=== PATIENT | female | born 1940 | race Caucasian/White ===

== ENCOUNTER → 2018-08-17 | Outpatient (CLI) | payer MEDICARE, OTHER, SELFPAY ==
--- NOTE | 2018-08-17 10:30 | CT_ITS ---
STUDY: CT LEFT SHOULDER REASON FOR EXAM: Osteoarthritis, evaluate for shoulder replacement. TECHNIQUE: The patient was scanned in a multi detector CT scanner. High resolution transaxial imaging was performed without the administration of intravenous contrast material. Sagittal and coronal images were reconstructed. Individualized dose optimization techniques were used for this CT. COMPARISON: None. FINDINGS: There is glenohumeral arthrosis with marginal osteophytes of the humeral head and joint space narrowing (coronal reconstructions 37-39). There are intra-articular bodies in the subscapularis recess (sagittal reconstructions 32-35) and in the bicipital tendon sheath (sagittal reconstructions 48-50). Normal glenoid rim, neck and visualized scapula. Normal humeral head, neck and tuberosities. Normal coracoid process. Normal visualized lateral clavicle. There is no substantial acromioclavicular arthrosis. There is a Type II morphology (curved), with a neutral orientation. Normal visualized muscles and soft tissue structures. There is a cardiac pacemaker. CT/Extremity Upper without Contra IMPRESSION: Glenohumeral arthrosis with intra-articular bodies. Electronically Signed: Hakeem Medrano MD at 14:01 EDT Tel , Service support ,
== END | disposition home or self-care (01) ==
LOC: RAD 10:18
PROVIDERS: Family Provider Nurse Practitioner Primary Care; PCP Nurse Practitioner Primary Care; Referring Provider Specialist; Visit Provider Specialist
DX: M19.012 Primary osteoarthritis, left shoulder (principal)
CPT/HCPCS: 73200

== ENCOUNTER 2020-06-06 07:52 | Day surgery (SDC) | payer MEDICARE, OTHER, SELFPAY ==
[2020-05-18 10:49] VITALS: BMI 31.1
[2020-06-06] VITALS (7 sets, daily range): BP systolic 83–126; BP diastolic 46–68; PULSE 66–93; RESP 16–18; TEMP 36.3–37.2; O2SAT 96–100; BMI 32.0
--- NOTE | 2020-06-06 06:00 | HP_ITS ---
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: No Is patient in pain?: No Allergies celecoxib [From Celebrex] Allergy (Intermediate, Verified 05/18/20 10:51) stomach pain atenolol [From Tenormin] Allergy (Verified 07/31/14 14:52) Unknown iodine Allergy (Verified 07/31/14 14:52) Unknown morphine Allergy (Verified 07/31/14 14:52) Unknown Medications Multivitamins,Therapeutic [Multivitamin] 1 tab PO DAILY 07/31/14 [History Confirmed 05/18/20] Pramipexole Di-HCl [Mirapex] 0.125 mg PO QHS 07/31/14 [History Confirmed 05/18/20] apixaban 5 mg tablet 5 mg PO BID 05/18/20 [History Confirmed 05/18/20] esomeprazole magnesium 40 mg capsule,delayed release 40 mg PO DAILY 05/18/20 [History Confirmed 05/18/20] metoprolol succinate 50 mg tablet,extended release 24 hr 50 mg PO QAM tab 05/18/20 [History Confirmed 05/18/20] metoprolol tartrate 75 mg tablet 75 mg PO QPM tab 05/18/20 [History Confirmed 05/18/20] polyethylene glycol 3350 17 gram/dose oral powder 17 g PO DAILY 05/18/20 [History Confirmed 05/18/20] [facility] Medical History Arthritis (Acute) Atrial fibrillation (Acute) Fatigue (Acute) GERD (gastroesophageal reflux disease) (Acute) History of back problems (Acute) History of heart disease (Acute) Surgical History (Updated 05/18/20 @ 10:46 by Elizabeth Venegas) History of hysterectomy (Acute) History of pacemaker (Acute) History of shoulder replacement (Acute) Family History (Updated 05/18/20 @ 10:48 by Elizabeth Venegas) Father Heart disease Cancer skin cancer Brother CVA (cerebral vascular accident) Daughter Thyroid disorder Social History (Updated 05/21/20 @ 08:[address] Fifi Rader MD) Smoking Status: Never smoker HPI HPI HPI: RUY SIMPSON, is a 80 F who presents to the office today for HPI HPI Surgical H&P: Yes HPI: RUY SIMPSON, is a 80 F who presents to the office today for abdominal bloating. Patient states this began about 3 weeks ago she felt like her upper abdomen was bloated this has improved some she did see her PCP the next week day and got Nexium as well as Pepcid for her reflux. Patient does admit to reflux about 3 times a week prior to 3 weeks ago- currently on the medication patient denies any GERD symptoms which for her were burning up the esophagus. Patient does have bowel once daily however none now she has take MiraLAX daily for the last week. Prior to 3 weeks ago patient states she had normal bowel movements daily with no laxative and denies any blood. Patient states her last colonoscopy was in 2006 or 2007 she did have couple polyps that time was done in [place] by Dr. Mcrae. Patient states her last EGD was by Dr. Mitchell about 3 to 4 years ago in [place] which was also normal. Patient denies any abdominal pain just the bloating sensation. ROS General General: Yes fatigue; no weight change, appetite, colon cancer, breast cancer or weakness HEENT HEENT: No difficulty swallowing, eye injury, eye surgery, swollen glands or hoarseness Endo Endocrine: No thyroid disease, diabetes mellitus, thyroid cancer, Hair loss, heat intolerance or cold intolerance Skin Skin: No rash or changing moles Breast Breast: No left breast lump, right breast lump, nipple discharge, breast pain, abnormal mammogram, abnormal US or breast enlargement Musc Musculoskeletal: Yes back problems and arthritis; no rheumatoid arthritis, gout or joint pain Cardio Cardiovascular: Yes pacemaker, heart disease and atrial fibrillation; no high blood pressure, heart attack, heart stent, palpitations, shortness of breat with exertion or chest pain Psych Psychiatric: No depression, anxiety or hearing voices Resp Respiratory: No shortness of breath, No sleep apnea, Yes cough, No COPD, No asthma, No emphysema, No wheezing Gastro Gastrointestinal: No abdominal pain, No nausea or vomiting, No diarrhea, No constipation, No blood in stool, Yes acid reflux, No hemorrhoids, No ulcers, No gallbladder problem, No black,tarry stools Robert Hematologic: Yes blood thinners, No blood disorders, No bleeding, No anemia, Yes blood clots Neuro Neurologic: No system reviewed and no additional complaints, except as docu, No as per HPI, No abnormal walking, No abnormal hearing, No abnormal movements, No abnormal speech, No behavioral changes, No burning sensations, No confusion, No seizure-like activity, No unsteadiness, No dizziness, No localized weakness, No frequent falls, No headache(s), No lack of coordination, No loss of vision, No memory loss, No numbness, No other visual disturbances, No radiating pain, No restless legs, No sensory deficit, No fainting, No tingling, No tremor(s), No weakness, No other Exam Const General: cooperative, comfortable, no acute distress, well developed Chest Breast Palpation: No nipple discharge Resp Effort & Inspection: normal respiratory effort Cardio Rate: regular rate GI Inspection: non-distended Palpation: soft, no guarding, nontender Neuro General: oriented x3 Extrem General: no clubbing, cyanosis or edema Psych Affect: normal affect Assessment & Plan Problems 1. Abdominal bloating R14.0 2. Hx of colonic polyps Z86.010 Plan Patient will stop eliquis 2 days prior to scopes. I have discussed the above with the patient. I have offered the patient EGD & colonoscopy for evaluation. I have explained the risks/benefits of the procedure and described the procedure. I have discussed the risks with the patient, including but not limited to: infection, bleeding, perforation of the GI tract requiring emergency surgery, inability to complete the procedure, injury to any internal organs, complications of anesthesia, etc. - the patient understands and agrees to proceed. I have answered all the patient's questions to the patient's satisfaction and the patient has no further questions. The patient has been given instructions for the colon cleansing preparation. 1 day of clears, MiraLAX Dulcolax split prep. Patient requested June 06 Fifi Rader M.D. Pager: [phone] [facility] [address] [place] [address], Outpatient [facility]ilion, [address] [place] [address] Office: [phone] Orders Orders: Colonoscopy 05/18/20 EGD 05/18/20 Plan Detail Follow Up We will schedule EGD and colonoscopy for June 06. Coding Level of Care Code Off vis,new,level 3 Diagnoses Abdominal bloating R14.0 Hx of colonic polyps Z86.010 COVID (Procedure Consent) Procedure Criteria Procedure Criteria: Yes Elective The surgeon/proceduralist and patient have discussed in detail the risk of exposure to and/or potential harm posed by the COVID-19 virus with having a surgery/procedure at this time versus the risk of? delaying the surgery/procedure. It is not possible to know either the risk of delaying the surgery or procedure or chance of getting an infection with perfect accuracy, but a joint decision was made between the patient and the surgeon/proceduralist ?to proceed at this time with the scheduled surgery/procedure as indicated on the consent form. I have examined the patient the following changes are noted: Patient states her symptoms of burning at the esophagus resolved with Nexium as she is no longer taking the Pepcid. Patient also states that her bloating is improved.
[2020-06-06] MEDS: Lactated Ringers 1,000 ML 100 ML IV (08:27)
--- NOTE | 2020-06-06 09:00 | GASB_PTH ---
PATIENT: RUY SIMPSON LOC: EN U#:[id number] AGE/SX: 80/F ROOM: RE06/06/[address]: Dr. Fifi Rader MD : 1940 BED: DIS: 06/06/2020 SPEC #: [id number] RECD: 06/06/20 11:15 STATUS: PETRA ANNEMARIE #: [id number] ANN MARIE: 06/06/20 09:[address]: Fifi Rader DEPT: SURGICAL PATHOLOGY RECD BY: Noelle Hammer ENTERED: 06/06/20 13:36 SP TYPE: Gastric Bx OTHR DR: Dr. Cr Flaherty MD Tissues: A - Gastric mucous membrane B - Gastric mucous membrane Procedures: Special Stain Group II Surgery Specimen Level IV Alcian Blue/PAS (control) HEADER OPERATION: Colonoscopy, EGD ([facility] [place]) PRE-OP DIAGNOSIS: Abdominal bloating; history colon polyps TISSUE SUBMITTED: A - Antrum biopsy for histo and H. pylori, B - GE junction biopsy MICROSCOPIC DIAGNOSIS A. Antrum biopsy: Mild gastritis. See microscopic description and comment. B. GE junction, biopsy: A fragment of gastric mucosa with mild to moderate chronic inflammation. Intestinal metaplasia (goblet cell metaplasia) is not identified. See comment. SJ:rg 06/07/2020 COMMENT A. The results of immunohistochemistry for Helicobacter pylori will be reported separately ([id number]). B. Alcian blue/PAS stain with matched control is used in the evaluation of the specimen. MICROSCOPIC DESCRIPTION Slides are reviewed. A. The specimen shows fragments of gastric mucosa with chronic inflammatory cell infiltrates in the lamina propria consisting of lymphocytes and plasma cells, consistent with mild chronic gastritis. GROSS DESCRIPTION A - Received in fixative is one container labeled with the patient's name and designated antrum biopsy. The specimen consists of one irregular fragment of light connolly soft tissue that measures 0.3 x 0.2 x 0.1 cm. The specimen is totally submitted in one cassette. B - Received in fixative is one container labeled with the patient's name and designated GE junction. The specimen consists of one irregular fragment of light connolly soft tissue that measures 0.3 x 0.2 x 0.1 cm. The specimen is totally submitted in one cassette. / AM:amena 06/06/20 TC:3 CPT: 36152 x2, 07939
--- NOTE | 2020-06-06 09:00 | IMM_PTH ---
PATIENT: RUY SIMPSON LOC: EN U#:[id number] AGE/SX: 80/F ROOM: RE06/06/[address]: Dr. Fifi Rader MD : 1940 BED: DIS: 06/06/2020 SPEC #: [id number] RECD: 06/06/20 14:57 STATUS: PETRA REQ #: [id number] ANN MARIE: 06/06/20 09:[address]: Fifi Rader DEPT: IMMUNOHISTOCHEMISTRY RECD BY: Tiny Armstrong ENTERED: 06/06/20 14:57 SP TYPE: IMMUNO OTHR DR: Dr. Cr Flaherty MD Tissues: A - Stomach, NOS Procedures: H Pylori (initial) PHYSICIAN & INSTITUTION [place] [id number] SPECIMEN INFORMATION: Tissue Source: A - Antrum biopsy Clinical Info: Abdominal bloating; history colonic polyps Specimen Number: [id number] CPT code: 22448 METHODOLOGY: Deparaffinized sections of prefer/formalin-fixed tissue or PAP/DQ stained slides are incubated with monoclonal/polyclonal antibodies/oligonucleotide probes. Localization is made via biotin free immunoperoxidase method. Appropriate controls are performed and reacted as expected. Results on target cell population are indicated in the following table: RESULTS: ANTIBODY / CLONE RESULT Block A H Pylori (polyclonal) negative These tests were developed and their performance characteristics determined by [facility]. They may not have been cleared or approved by the U.S. Food and Drug Administration. The FDA has determined that such clearance or approval is not necessary. INTERPRETATION: A. Antrum, biopsy: Negative for Helicobacter pylori organisms. SJ:amena 06/07/2020
--- NOTE | 2020-06-06 09:48 | OP.CCLET_ITS ---
06/06/2020 Cr Flaherty MD [address] [id number] Re : Upper GI endoscopy procedure for Fabienne Chu Dear Dr. Flaherty This procedure was performed on Saturday, June 06, 2020. My impressions and recommendations are as follows: Impressions : - Z-line variable, 38 cm from the incisors. Biopsied. - Erythematous mucosa in the antrum. Biopsied. - Normal examined duodenum. - A few gastric polyps. Recommendations : - Await pathology results. - Discharge patient to home. - Resume previous diet. - Continue present medications. My findings are described in the full procedure note, which is enclosed. If I can be of further assistance, please feel free to contact me at Doctor phone number(s): , Work: . Sincerely, MD Fifi Valdes MD 06/06/2020 9:47:40 AM This report has been signed electronically.
--- NOTE | 2020-06-06 09:48 | OP.EGD_ITS ---
Patient Name: Fabienne Chu Procedure Date: 06/06/2020 8:58 AM Date of : 1940 Age: 80 Procedure: Upper GI endoscopy Indications: Abdominal bloating Providers: Fifi Rader MD Referring MD: Cr Flaherty MD Medicines: Monitored Anesthesia Care Patient Profile: This is a 80 year old female. Complications: No immediate complications. Procedure: Pre-Anesthesia Assessment: - Prior to the procedure, a History and Physical was performed, and patient medications and allergies were reviewed. The patient's tolerance of previous anesthesia was also reviewed. The risks and benefits of the procedure and the sedation options and risks were discussed with the patient. All questions were answered, and informed consent was obtained. Prior Anticoagulants: The patient has taken Eliquis (apixaban), last dose was 2 days prior to procedure. ASA Grade Assessment: Per anesthesia. After reviewing the risks and benefits, the patient was deemed in satisfactory condition to undergo the procedure. After obtaining informed consent, the endoscope was passed under direct vision. Throughout the procedure, the patient's blood pressure, pulse, and oxygen saturations were monitored continuously. The Endoscope was introduced through the mouth, and advanced to the second part of duodenum. The upper GI endoscopy was accomplished without difficulty. The patient tolerated the procedure well. Scope In: 9:08:04 AM Scope Out: 9:14:31 AM Total Procedure Duration Time 0 hours 6 minutes 27 seconds Findings: The Z-line was variable and was found 38 cm from the incisors. Biopsies were taken with a cold forceps for histology. Mildly erythematous mucosa without bleeding was found in the gastric antrum. Biopsies were taken with a cold forceps for histology. Biopsies were taken with a cold forceps for Helicobacter pylori cultures. The examined duodenum was normal. The cardia and gastric fundus were normal on retroflexion. A few less than 5 mm sessile polyps with no bleeding and no stigmata of recent bleeding were found in the gastric fundus. Impression: - Z-line variable, 38 cm from the incisors. Biopsied. - Erythematous mucosa in the antrum. Biopsied. - Normal examined duodenum. - A few gastric polyps. Recommendation: - Await pathology results. - Discharge patient to home. - Resume previous diet. - Continue present medications. Procedure Code(s): --- Professional --- 87459, Esophagogastroduodenoscopy, flexible, transoral; with biopsy, single or multiple Diagnosis Code(s): --- Professional --- K22.8, Other specified diseases of esophagus K31.89, Other diseases of stomach and duodenum K31.7, Polyp of stomach and duodenum R14.0, Abdominal distension (gaseous) CPT copyright 2017 [employer]. All rights reserved. The codes documented in this report are preliminary and upon rac specialist review may be revised to meet current compliance requirements. MD Fifi Valdes MD 06/06/2020 9:47:40 AM This report has been signed electronically. Number of Addenda: 0 Note Initiated On: 06/06/2020 8:58 AM
--- NOTE | 2020-06-06 09:51 | OP.COLON_ITS ---
Patient Name: Fabienne Chu Procedure Date: 06/06/2020 9:15 AM Date of : 1940 Age: 80 Procedure: Colonoscopy Indications: Surveillance: Personal history of colonic polyps (unknown histology) on last colonoscopy more than 5 years ago Providers: Fifi Rader MD Referring MD: Cr Flaherty MD Medicines: Monitored Anesthesia Care Patient Profile: This is a 80 year old female. Last Colonoscopy: more than 10 years ago. Complications: No immediate complications. Procedure: Pre-Anesthesia Assessment: - Prior to the procedure, a History and Physical was performed, and patient medications and allergies were reviewed. The patient's tolerance of previous anesthesia was also reviewed. The risks and benefits of the procedure and the sedation options and risks were discussed with the patient. All questions were answered, and informed consent was obtained. Prior Anticoagulants: The patient has taken Eliquis (apixaban), last dose was 2 days prior to procedure. ASA Grade Assessment: Per anesthesia. After reviewing the risks and benefits, the patient was deemed in satisfactory condition to undergo the procedure. After I obtained informed consent, the scope was passed under direct vision. Throughout the procedure, the patient's blood pressure, pulse, and oxygen saturations were monitored continuously. The colonoscope was introduced through the anus and advanced to the cecum, identified by the appendiceal orifice, ileocecal valve and palpation. The colonoscopy was performed without difficulty. The patient tolerated the procedure well. The quality of the bowel preparation was good. Scope In: 9:16:30 AM Scope Withdrawal Time 0 hours 12 minutes 10 seconds Scope Out: 9:37:23 AM Total Procedure Duration Time 0 hours 20 minutes 53 seconds Findings: Hemorrhoids were found on perianal exam. Many small and large-mouthed diverticula were found in the sigmoid colon, descending colon and transverse colon. The entire examined colon appeared normal on direct and retroflexion views. Impression: - Hemorrhoids found on perianal exam. - Diverticulosis in the sigmoid colon, in the descending colon and in the transverse colon. - The entire examined colon is normal on direct and retroflexion views. - No specimens collected. Recommendation: - Discharge patient to home. - High fiber diet. - Continue present medications. - Repeat colonoscopy in 10 years depending on overall health at that time. Procedure Code(s): --- Professional --- G0105, PT, Colorectal cancer screening; colonoscopy on individual at high risk Diagnosis Code(s): --- Professional --- Z86.010, Personal history of colonic polyps K64.9, Unspecified hemorrhoids K57.30, Diverticulosis of large intestine without perforation or abscess without bleeding CPT copyright 2017 [employer]. All rights reserved. The codes documented in this report are preliminary and upon top collar baster review may be revised to meet current compliance requirements. MD Fifi Valdes MD 06/06/2020 9:51:14 AM This report has been signed electronically. Number of Addenda: 0 Note Initiated On: 06/06/2020 9:15 AM
--- NOTE | 2020-06-06 09:51 | OP.CCLET_ITS ---
06/06/2020 Cr Flaherty MD [address] [id number] Re : Colonoscopy procedure for Fabienne Chu Dear Dr. Flaherty This procedure was performed on Saturday, June 06, 2020. My impressions and recommendations are as follows: Impressions : - Hemorrhoids found on perianal exam. - Diverticulosis in the sigmoid colon, in the descending colon and in the transverse colon. - The entire examined colon is normal on direct and retroflexion views. - No specimens collected. Recommendations : - Discharge patient to home. - High fiber diet. - Continue present medications. - Repeat colonoscopy in 10 years depending on overall health at that time. My findings are described in the full procedure note, which is enclosed. If I can be of further assistance, please feel free to contact me at Doctor phone number(s): , Work: . Sincerely, MD Fifi Valdes MD 06/06/2020 9:51:14 AM This report has been signed electronically.
== END 2020-06-06 10:45 | disposition home or self-care (01) ==
LOC: EN 07:53 → AC 07:54
PROVIDERS: PCP Family Medicine; Referring Provider Family Medicine; Visit Provider Surgery
PROC: 0DJD8ZZ Inspection of Lower Intestinal Tract, Via Natural or Artificial Opening Endoscopic (ICD-10-PCS; CPT 45378; principal; 2020-06-06 08:55)
DX: K29.70 Gastritis, unspecified, without bleeding (principal); K31.7 Polyp of stomach and duodenum; K64.9 Unspecified hemorrhoids; K57.30 Diverticulosis of large intestine without perforation or abscess without bleeding; M19.90 Unspecified osteoarthritis, unspecified site; I48.91 Unspecified atrial fibrillation; K21.9 Gastro-esophageal reflux disease without esophagitis; K58.9 Irritable bowel syndrome, unspecified; G25.81 Restless legs syndrome; E78.00 Pure hypercholesterolemia, unspecified; Z78.0 Asymptomatic menopausal state; Z87.19 Personal history of other diseases of the digestive system; Z86.010 Personal history of colon polyps; Z86.718 Personal history of other venous thrombosis and embolism; Z79.01 Long term (current) use of anticoagulants; Z79.899 Other long term (current) drug therapy
CPT/HCPCS: 43239; G0105; 87426; 88305; 88313; 88342; C9803; J7120

== ENCOUNTER → 2022-07-10 | Outpatient (CLI) | payer MEDICARE, OTHER, SELFPAY ==
--- NOTE | 2022-07-10 12:51 | CT_ITS ---
EXAM: CT RIGHT UPPER EXTREMITY WITHOUT INTRAVENOUS CONTRAST, SHOULDER CLINICAL INDICATION: SHOULDER PAIN TECHNIQUE: Helically acquired images were obtained of the right shoulder without intravenous contrast. 2-D reformats were performed by the technologist. CTDIvol = ( 22.58 ) mGy, DLP = ( 628.92 ) mGycm This CT exam was performed using one or more of the following dose reduction techniques: automated exposure control, adjustment of the mA and/or kV according to patient size, and/or use of iterative reconstruction technique. This report was created using [employer] technology. COMPARISON: None. FINDINGS: BONES/JOINTS: Degenerative changes of the spine. Degenerative changes of the acromioclavicular joint. No acute or healing fracture or malalignment. No unusual lytic or sclerotic lesions of bone. Type II acromion with curved undersurface. No subacromial enthesophyte. SOFT TISSUES: Intramuscular lipoma along the peripheral aspect of the lateral deltoid muscle. No soft tissue swelling or gas. No radiopaque foreign body. LUNG APICES: Right middle lobe pleural parenchymal scarring. Lungs are otherwise clear. Lungs are clear. MEDIASTINUM: Few small scattered calcified granulomas. Calcified right hilar lymph nodes are compatible with granulomatous disease. OTHER FINDINGS: No hemorrhage or hematoma. CT/Extremity Upper without Contra IMPRESSION: 1. No acute or healing fracture or malalignment. 2. Moderate degenerative changes of the acromioclavicular joint and glenohumeral joint. Electronically Signed: Howie Willis MD at 4:04 EDT ,
== END | disposition home or self-care (01) ==
LOC: CT 12:48
PROVIDERS: PCP Student in an Organized Health Care Education/Training Program; Referring Provider Specialist; Visit Provider Specialist
DX: M19.011 Primary osteoarthritis, right shoulder (principal)
CPT/HCPCS: 73200

== ENCOUNTER 2022-10-24 10:58 | Outpatient (CLI) | payer MEDICARE, OTHER, SELFPAY ==
[2022-10-25 16:09] LABS: Carbohydrate Ag 19-9 2261 22 U/mL (0-35)
== END 2022-10-24 23:59 | disposition home or self-care (01) ==
LOC: LAB 11:02
PROVIDERS: PCP Student in an Organized Health Care Education/Training Program; Referring Provider Internal Medicine Gastroenterology; Visit Provider Internal Medicine Gastroenterology
DX: Q45.3 Other congenital malformations of pancreas and pancreatic duct (principal); K86.89 Other specified diseases of pancreas; D73.89 Other diseases of spleen; D72.829 Elevated white blood cell count, unspecified; D18.03 Hemangioma of intra-abdominal structures
CPT/HCPCS: 36415; 86301

== ENCOUNTER → 2022-11-11 | Outpatient (CLI) | payer MEDICARE, OTHER, SELFPAY ==
[2022-11-11] VITALS (8 sets, daily range): BP systolic 140–183; BP diastolic 71–90; PULSE 68–75; RESP 16–18; O2SAT 97–99; BMI 31.2
--- NOTE | 2022-11-11 13:24 | CT_ITS ---
EXAM: CT ABDOMEN AND PELVIS WITHOUT AND WITH INTRAVENOUS CONTRAST CLINICAL INDICATION: Pancreatic protocol TECHNIQUE: Helically acquired images were obtained of the abdomen and pelvis without and with intravenous contrast. This CT exam was performed using one or more of the following dose reduction techniques: automated exposure control, adjustment of the mA and/or kV according to patient size, and/or use of iterative reconstruction technique. CONTRAST: Oral Readi-CAT COMPARISON: No relevant prior studies available. FINDINGS: LOWER THORAX: Unremarkable. Lung bases are clear. No cardiomegaly. No significant pericardial effusion. ABDOMEN: LIVER: Unremarkable. Homogeneous. No focal mass. GALLBLADDER AND BILE DUCTS: Unremarkable. No calcified gallstones. No gallbladder distention or wall edema. No intra- or extrahepatic biliary ductal dilation. PANCREAS: Unremarkable. No focal cystic or solid mass. SPLEEN: There are several low-density masses in the spleen may represent hemangiomas or possibly metastatic disease. ADRENALS: Unremarkable. No nodules. KIDNEYS AND URETERS: Delayed images show normal excretion of contrast from both kidneys. Normal renal size and position. No hydronephrosis. STOMACH AND BOWEL: There is sigmoid diverticulosis with no evidence of diverticulitis. No stomach or bowel distention. PELVIS: APPENDIX: No evidence of acute appendicitis. BLADDER: Unremarkable. REPRODUCTIVE: The patient status post hysterectomy. ABDOMEN and PELVIS: INTRAPERITONEAL SPACE: Unremarkable. No ascites or other fluid collection. No free air. BONES/JOINTS: Unremarkable. No suspicious lytic or blastic abnormality. SOFT TISSUES: Unremarkable. No discrete abdominal or pelvic wall hernia. VASCULATURE: Unremarkable. Abdominal aorta is non-dilated. LYMPH NODES: Unremarkable. No enlarged lymph nodes. CT/CT Abd/Pelvis W/WO Contrast IMPRESSION: Multiple low-density masses in the spleen possibly representing metastatic disease or possibly lymphoma. If indicated further evaluation with MRI may be beneficial. No other acute abnormalities are identified. Electronically Signed: Kenny Cano MD at 22:07 EDT ,
[2022-11-11 14:16] LABS: CREATININE FINGERSTICK 1.2 mg/dL (0.55-1.02)
--- NOTE | 2022-11-11 16:00 | NURSING ---
ALYSSA Yeh discussed with patient talking with her PCP regarding her elevated BP. Pt reports recently starting on BP medication 1 week ago. Pt is agreeable to call PCP to inform them of elevated BPs throughout her time in Radiology waiting for her CT scan.
== END | disposition home or self-care (01) ==
LOC: CT 13:23
PROVIDERS: PCP Student in an Organized Health Care Education/Training Program; Referring Provider Internal Medicine Gastroenterology; Visit Provider Internal Medicine Gastroenterology
DX: Q45.3 Other congenital malformations of pancreas and pancreatic duct (principal)
CPT/HCPCS: 74178; Q9967; A4216

== ENCOUNTER → 2023-03-06 | Outpatient (CLI) | payer MEDICARE, OTHER, SELFPAY ==
[2023-03-07 12:08] LABS: Carbohydrate Ag 19-9 2261 21 U/mL (0-35)
== END | disposition home or self-care (01) ==
LOC: LAB 11:04
PROVIDERS: PCP Student in an Organized Health Care Education/Training Program; Referring Provider Internal Medicine Gastroenterology; Visit Provider Internal Medicine Gastroenterology
DX: Q45.3 Other congenital malformations of pancreas and pancreatic duct (principal)
CPT/HCPCS: 36415; 86301

== ENCOUNTER → 2023-05-08 | Outpatient (CLI) | payer MEDICARE, OTHER, SELFPAY ==
--- NOTE | 2023-05-08 08:25 | MRI_ITS ---
STUDY: MRI LEFT ANKLE WITHOUT CONTRAST REASON FOR EXAM: Female, 83 years old. Contusion of left lower leg. TECHNIQUE: Standardized fat and water weighted pulse sequences were obtained in all 3 orthogonal planes. COMPARISON: None. FINDINGS: There is minimal posterior tibialis tenosynovitis. Intact posterior tibialis tendon. Normal flexor digitorum longus tendon. Normal flexor hallucis longus tendon. Normal peroneus longus and brevis tendons. Normal tibialis anterior tendon. Normal extensor hallucis longus tendon. Normal extensor digitorum longus tendons. There is a complete full-thickness tear/rupture of the Achilles tendon, located between 5 to 7 cm above its distal insertion with a 2 cm fluid-filled gap (sagittal STIR series 6 images 11-13). Normal plantar fascia. Normal plantar calcaneal tubercles. Normal intrinsic muscles of the rearfoot. Normal distal tibiofibular syndesmotic ligamentous complex. Normal lateral ligamentous complex. Normal subtalar ligaments and sinus tarsi. Normal deltoid ligamentous complex. Normal plantar calcaneonavicular (spring) ligament. Normal tibiotalar articulation. Normal talar dome. There is a small posterior subtalar joint effusion. Normal talonavicular articulation. Normal calcaneocuboid articulation. Normal navicular-cuneiform articulations. There is mild subcutaneous soft tissue edema around the left ankle. MRI/Lower Ext Joint Only (Routine) IMPRESSION: Complete full-thickness tear/rupture of the Achilles tendon, located between 5 to 7 cm above its distal insertion with a 2 cm fluid-filled gap. Minimal posterior tibialis tenosynovitis. Small posterior subtalar joint effusion. Mild subcutaneous soft tissue edema around the left ankle. Electronically Signed: Jomar Lazo MD at 13:46 EST ,
--- OUTSIDE RECORDS SUMMARY | 2023-05-08 08:41 | XMS RPT_ITS | CCD ---
Author Name Unknown Address [address] [place] [address] Organization [employer] Care Team Providers Care Pipeline Dispatcher Name Role Phone MONA ARIAS Attending Unavailable HUGOMONA SAMSON Primary Care Unavailable HUGOMONA SAMSON Admitting Unavailable HUGOMONA SAMSON Attending Unavailable HUGO, MONA Cee Primary Care Unavailable HUGO, MONA Cee Admitting Unavailable IGNACIO MILAN-ROSARIO, AARON Primary Care Physician Narda PT, Michelle Unavailable Unavailable GUERA MILAN-STAPLE FIBER WASHER, TOMASZ Perez Primary Care Physician ROMAR DO, DR BISHOP [facility] GUERA MILAN-STAPLE FIBER WASHER, TOMASZ Perez Primary Care Pratik LYNNE APRN-STAPLE FIBER WASHER, TOMASZ Perez Admitting Pratik LAWRENCE MD, DR OTIS ELY Consulting Haris CHAPPELL MD, OPAL Perez Referring Unavailable TA SMITH, OPAL Perez Attending Unavailable MICHELE SMITH, DR FLAQUITA Garcia Attending Unavailab le ROMAR DO, DR BISHOP Primary Care Unavailable ROMAR DO, DR BISHOP Attending Unavailable ROMAR DO, DR BISHOP Primary Care Unavailable KENNEN BACK PANEL PADDER-STAPLE FIBER WASHER, TOMASZ Perez Primary Care Unavai lable ROMAR DO, DR BISHOP Attending Unavailable DEYSI SAAVEDRA PA-C Attending Unavailable JANENEN BACK PANEL PADDER-STAPLE FIBER WASHER, TOMASZ Perez Primary Care DELBERT Wharton DPM Attending Unavailable ROMAR DO, DR BISHOP Primary Care Unavailable ROMAR DO, DR BISHOP Attending Unavailable ROMAR DO, DR BISHOP Primary Care Unavailable ESAU TAYLOR PA-C Attending Unavailable ESESAU ALMEIDA PA-C Referring Unavailable ROMAR DO, DR BISHOP Primary Care Unavailable ROMAR DO, DR BISHOP Attending Unavailable ROMAR DO, DR BISHOP Primary Care Unavailable EDWARDO BACK PANEL PADDER-STAPLE FIBER WASHER, MICHELLE Estrada Consulting Unavaila ble ROMAR DO, DR BISHOP Primary Care Unavailable MICHELE SMITH, DR FLAQUITA Garcia Referring Unavailab tanya BAUTISTA MD, DR FLAQUITA Garcia Attending Unavailab tanya BAUTISTA MD, DR FLAQUITA Garcia Admitting [facility] Primary Care Provider Nica SMITH, Vilma Primary Care Provider [phone] DEO HERMAN Attending Unavailable LISHNGLORIAI, VILMA Primary Care Unavailable SIMA SHARPE Attending Unavailable BLAKE BULLOCK Attending Unavailable LISHNEVSKI, VILMA Attending Unavailable LISHNEVSKI, VILMA Primary Care Unavailable LISHNGLORIAI, VILMA Attending Unavailable LISHNEVSKI, VILMA Referring Unavailable LISHNEVSKI, VILMA Primary Care Unavailable DELBERT SARAVIA Attending Unavailable DELBERT SARAVIA Referring Unavailable LISHNESTRELLASKI, VILMA Primary Care Unavailable Allergies Allergy Classification Reported Allergen(s) Allergy Type Date of Onset Reaction(s) Facility (11 sources) celecoxib; Translations: [celecoxib] Drug Allergy GI Irritation [facility] Work Phone: (11 sources) Contrast media; Translations: [iodinated radiocontrast agents] Drug allergy Rash [facility] Work Phone: (20 sources) gabapentin; Translations: [gabapentin] Drug Allergy 6 Other [facility] Work Phone: (20 sources) Indomethacin; Translations: [indomethacin] Drug Allergy 6 [facility] Work Phone: (11 sources) meloxicam; Translations: [meloxicam] Drug Allergy GI Irritation [facility] Work Phone: (20 sources) Morphine; Translations: [morphine] Drug Allergy 8 Hives, Other, Unknown [facility] Work Phone: (20 sources) Omeprazole; Translations: [omeprazole] Drug Allergy 3 Other [facility] Work Phone: (20 sources) Orphenadrine; Translations: [orphenadrine] Drug Allergy 6 Other [facility] Work Phone: (20 sources) oxybutynin; Translations: [oxybutynin] Drug Allergy 6 Palpitations [facility] Work Phone: (20 sources) Propoxyphene; Translations: [propoxyphene] Drug Allergy 6 Other [facility] Work Phone: (13 sources) Atenolol Allergy to substance [address] [facility] celecoxib Drug Allergy 6 Nausea And Vomiting, Other [facility] [employer] (13 sources) Gadolinium Drug Allergy 3 Rash [facility] [employer] (13 sources) Iodine Drug Allergy 6 Unknown [facility] [employer] (13 sources) meloxicam Drug Allergy 3 Other [facility] [employer] (13 sources) Iodinated Contrast Media Drug Allergy 8 Rash [facility] [employer] Medications Current Medications Medication Drug Class(es) Dates Sig (Normalized) Sig (Original) apixaban 5 mg oral tablet (20 sources) Factor Xa Inhibitor Start: 04-25-2022 take 1 tablet by mouth twice daily Eliquis 5 MG tablet Indications: Atypical atrial flutter (HCC) Take 1 tablet (5 mg) by mouth 2 times daily. 180 tablet 3 07/01/2022 Active Completed/Discontinued Medications Medication Drug Class(es) Dates Sig (Normalized) Sig (Original) acetaminophen 500 mg oral tablet (3 sources) Start: 03-30-2023 End: 03-30-2023 acetaminophen (Tylenol) tablet 1,000 mg Problems Problem Classification Problem Date Documented Da te Episodic/Chronic Abdominal hernia (13 sources) Hiatal hernia; Translations: [Umbilical hernia] 03-19-2022 Episodic Abdominal pain (8 sources) Abdominal pain; Translations: [Unspecified abdominal pain] Episodic Anxiety disorders (12 sources) Anxiety; Translations: [Anxiety disorder] Onset: 08-05-2022 08-18-2019 Chronic Cardiac dysrhythmias (20 sources) Atrial fibrillation; Translations: [Unspecified atrial fibrillation] Onset: 11-20-2016 04-13-2017 Chronic Chronic kidney disease (16 sources) Chronic kidney disease; Translations: [Chronic kidney disease, unspecified] Onset: 03-08-2022 09-01-2019 Chronic Conduction disorders (20 sources) Cardiac pacemaker in situ; Translations: [Presence of cardiac pacemaker] Onset: 11-20-2016 04-13-2017 Chronic Results Test Name Value Interpretation Reference Range Facil ity Vital Signs Date Time Vital Sign Value Performing Clinician Faci lity 03-30-2023 14:57-0500 Body mass index (BMI) [Ratio] 31.09 kg/m2 Deo Herman MD Work Phone: [employer] 03-30-2023 14:57-0500 Body temperature 98.1 [degF] Deo Herman MD Work Phone: [employer] 03-30-2023 14:57-0500 Body weight 77.11 kg Deo Herman MD Work Phone: [employer] 03-30-2023 14:57-0500 Diastolic blood pressure 87 mm[Hg] Deo Herman MD Work Phone: [employer] 03-30-2023 14:57-0500 Heart rate 75 /min Deo Herman MD Work Phone: [employer] 03-30-2023 14:57-0500 Respiratory rate 18 /min Deo Herman MD Work Phone: [employer] 03-30-2023 14:57-0500 SaO2% (BldA) [Mass fraction] 100 % Deo Herman MD Work Phone: [employer] 03-30-2023 14:57-0500 Systolic blood pressure 191 mm[Hg] Deo Herman MD Work Phone: [employer] 01-21-2023 10:56-0400 Diastolic blood pressure 70 mm[Hg] Blake Bullock MD Work Phone: [employer] 01-21-2023 10:56-0400 Systolic blood pressure 118 mm[Hg] Blake Bullock MD Work Phone: [facility] 01-21-2023 10:46-0400 Body height 157.5 cm Blake Bullock MD Work Phone: [facility] 01-21-2023 10:46-0400 Body mass index (BMI) [Ratio] 32.63 kg/m2 Blake Bullock MD Work Phone: [facility] 01-21-2023 10:46-0400 Body weight 80.92 kg Blake Bullock MD Work Phone: [facility] 01-21-2023 10:46-0400 Heart rate 91 /min Blake Bullock MD Work Phone: [facility] 01-21-2023 10:46-0400 Respiratory rate 16 /min Blake Bullock MD Work Phone: [facility] 01-21-2023 10:46-0400 SaO2% (BldA) [Mass fraction] 98 % Blake Bullock MD Work Phone: [facility] 08-06-2022 11:54-[address] FLAQUITA BAUTISTA MD [facility] 08-06-2022 11:54-0400 Body temperature 98.06 [degF] DR FLAQUITA BAUTISTA MD [facility] 08-06-2022 11:54-0400 Diastolic Blood Pressure Non-Invasive [address] FLAQUITA BAUTISTA MD [facility] 08-06-2022 11:54-0400 Heart rate 91 /min DR FLAQUITA BAUTISTA MD [facility] 08-06-2022 11:54-0400 Mean blood pressure 87 mm[Hg] DR FLAQUITA BAUTISTA MD [facility] 08-06-2022 11:54-0400 Reason For Taking VItal Signs DR FLAQUITA BAUTISTA MD [facility] 08-06-2022 11:54-0400 Respiratory rate 21 /min DR FLAQUITA BAUTISTA MD [facility] 08-06-2022 11:54-0400 Systolic Blood Pressure Non-Invasive [address] FLAQUITA BAUTISTA MD [facility] 08-06-2022 09:19-0400 Heart rate 75 /min DR FLAQUITA BAUTISTA MD [facility] 08-06-2022 08:56-0400 Body temperature 97.34 [degF] DR FLAQUITA BAUTISTA MD [facility] 08-06-2022 08:56-0400 Diastolic Blood Pressure Non-Invasive [address] FLAQUITA BAUTISTA MD [facility] 08-06-2022 08:56-0400 Heart rate 72 /min DR FLAQUITA BAUTISTA MD [facility] 08-06-2022 08:56-0400 Reason For Taking VItal Signs DR FLAQUITA BAUTISTA MD [facility] 08-06-2022 08:56-0400 Respiratory rate 20 /min DR FLAQUITA BAUTISTA MD [facility] 08-06-2022 08:56-0400 Systolic Blood Pressure Non-Invasive [address] FLAQUITA BAUTISTA MD [facility] 08-06-2022 05:17-0400 Body temperature 97.7 [degF] DR FLAQUITA BAUTISTA MD [facility] 08-06-2022 05:17-0400 Diastolic Blood Pressure Non-Invasive [address] FLAQUITA BAUTISTA MD [facility] 08-06-2022 05:17-0400 Heart rate 63 /min DR FLAQUITA BAUTISTA MD [facility] 08-06-2022 05:17-0400 Reason For Taking VItal Signs DR FLAQUITA BAUTISTA MD [facility] 08-06-2022 05:17-0400 Respiratory rate 18 /min DR FLAQUITA BAUTISTA MD [facility] 08-06-2022 05:17-0400 Systolic Blood Pressure Non-Invasive [address] FLAQUITA BAUTISTA MD [facility] 08-05-2022 23:58-0400 Heart rate 63 /min DR FLAQUITA BAUTISTA MD [facility] 08-05-2022 20:27-0400 Heart rate 66 /min DR FLAQUITA BAUTISTA MD [facility] 08-05-2022 17:58-0400 Heart rate 66 /min DR FLAQUITA BAUTISTA MD [facility] 08-05-2022 13:46-0400 Body height [address] FLAQUITA BAUTISTA MD [facility] 08-05-2022 13:46-0400 Body weight 77.[address] FLAQUITA BAUTISTA MD [facility] 08-05-2022 13:46-0400 Body weight 32.17 kg/m2 DR FLAQUITA BAUTISTA MD [facility] 08-05-2022 13:44-0400 Heart rate 72 /min DR FLAQUITA BAUTISTA MD [facility] 04-11-2023 12:15-0400 Body temperature 97.16 [degF] DR FLAQUITA BAUTISTA MD [facility] 08-05-2022 12:10-0400 Respiratory Rate - Anes 0 br/min DR FLAQUITA BAUTISTA MD [facility] 08-05-2022 12:05-0400 Respiratory Rate - Anes 9 br/min DR FLAQUITA BAUTISTA MD [facility] 08-05-2022 12:00-0400 Respiratory Rate - Anes 10 br/min DR FLAQUITA BAUTISTA MD [facility] 08-05-2022 08:50-0400 Body height [address] FLAQUITA BAUTISTA MD [facility] 08-05-2022 08:50-0400 Body temperature 98.96 [degF] DR FLAQUITA BAUTISTA MD [facility] 08-05-2022 08:50-0400 Body weight 77.[address] FLAQUITA BAUTISTA MD [facility] 07-18-2022 11:11-0400 Blood Pressure Cuff Size DR FLAQUITA BAUTISTA MD [facility] 07-18-2022 11:11-[address] FLAQUITA BAUTISTA MD [facility] 07-18-2022 11:11-[address] FLAQUITA Burch [facility] 07-18-2022 11:11-0400 Body height [address] FLAQUITA BAUTISTA MD [facility] 07-18-2022 11:11-0400 Body weight 77.[address] FLAQUITA BAUTISTA MD [facility] 07-18-2022 11:11-0400 Body weight 32.17 kg/m2 DR FLAQUITA BAUTISTA MD [facility] 07-18-2022 11:11-0400 Diastolic Blood Pressure Non-Invasive [address] FLAQUITA BAUTISTA MD [facility] 07-18-2022 11:11-0400 Heart rate 71 /min DR FLAQUITA BAUTISTA MD [facility] 07-18-2022 11:11-0400 Systolic Blood Pressure Non-Invasive [address] FLAQUITA BAUTISTA MD [facility] 03-08-2022 11:49-0500 Body temperature 98.06 [degF] TOMASZ KENNEN BACK PANEL PADDER-STAPLE FIBER WASHER [facility] 03-08-2022 11:49-0500 Diastolic Blood Pressure Non-Invasive 64 1 TOMASZ KENNEN BACK PANEL PADDER-STAPLE FIBER WASHER [facility] 03-08-2022 11:49-0500 Heart rate 74 /min TOMASZ JANENEN BACK PANEL PADDER-STAPLE FIBER WASHER [facility] 03-08-2022 11:49-0500 Respiratory rate 20 /min TOMASZ KENNEN BACK PANEL PADDER-STAPLE FIBER WASHER [facility] 03-08-2022 11:49-0500 Systolic Blood Pressure Non-Invasive 134 1 TOMASZ KENNEN BACK PANEL PADDER-STAPLE FIBER WASHER [facility] 03-08-2022 07:21-0500 Body temperature 97.52 [degF] TOMASZ KENNEN BACK PANEL PADDER-STAPLE FIBER WASHER [facility] 03-08-2022 07:21-0500 Diastolic Blood Pressure Non-Invasive 51 1 TOMASZ BURNSN BACK PANEL PADDER-STAPLE FIBER WASHER [facility] 03-08-2022 07:21-0500 Heart rate 61 /min TOMASZ BURNSN BACK PANEL PADDER-STAPLE FIBER WASHER [facility] 03-08-2022 07:21-0500 Respiratory rate 20 /min TOMASZ BURNSN BACK PANEL PADDER-STAPLE FIBER WASHER [facility] 03-08-2022 07:21-0500 Systolic Blood Pressure Non-Invasive 116 1 TOMASZ LARANEN BACK PANEL PADDER-STAPLE FIBER WASHER [facility] 03-08-2022 03:35-0500 Body temperature 97.7 [degF] TOMASZ LYNNE BACK PANEL PADDER-STAPLE FIBER WASHER [facility] 03-08-2022 03:35-0500 Diastolic Blood Pressure Non-Invasive 66 1 TOMASZ BURNSN BACK PANEL PADDER-STAPLE FIBER WASHER [facility] 03-08-2022 03:35-0500 Heart rate 60 /min TOMASZ BURNSN BACK PANEL PADDER-STAPLE FIBER WASHER [facility] 03-08-2022 03:35-0500 Respiratory rate 20 /min TOMASZ BURNSN BACK PANEL PADDER-STAPLE FIBER WASHER [facility] 03-08-2022 03:35-0500 Systolic Blood Pressure Non-Invasive 103 1 TOMASZ BURNSN BACK PANEL PADDER-STAPLE FIBER WASHER [facility] 03-07-2022 23:37-0500 Body weight 79.9 kg TOMASZ LYNNE BACK PANEL PADDER-STAPLE FIBER WASHER [facility] 03-07-2022 23:24-0500 Heart rate 70 /min TOMASZ BURNSN BACK PANEL PADDER-STAPLE FIBER WASHER [facility] 03-07-2022 22:15-0500 Heart rate 70 /min TOMASZ LYNNE BACK PANEL PADDER-STAPLE FIBER WASHER [facility] 03-07-2022 21:24-0500 Body height 157.5 cm TOMASZ LYNNE BACK PANEL PADDER-STAPLE FIBER WASHER [facility] 03-07-2022 21:24-0500 Body weight 78.2 kg TOMASZ LYNNE BACK PANEL PADDER-STAPLE FIBER WASHER [facility] 03-07-2022 21:24-0500 Body weight 31.52 kg/m2 TOMASZ LYNNE BACK PANEL PADDER-STAPLE FIBER WASHER [facility] 03-07-2022 20:30-0500 Heart rate 110 /min TOMASZ GUERA BACK PANEL PADDER-STAPLE FIBER WASHER [facility] Encounters Encounter Date Encounter Type Care Provider Facility Start: 04-14-2023 End: 04-15[facility] Start: 04-14-2023 End: 04-15-2023 ambulatory DELBERT SARAVIA [facility] Start: 04-14-2023 End: 04-14-2023 Subsequent hospital visit by physician Delbert Saravia DPM Work Phone: [facility] US Procedures Date Procedure Procedure Detail Performing Clinician Start: 04-14-2023 Dup-scan xtr veins unilateral/limited study Delbert Saravia DPM Work Phone: Start: 04-14-2023 Lipid 1996 panel - S muna or Plasma Delbert Saravia DPM Work Phone: Start: 03-30-2023 US scan of abdominal aorta Deo Herman MD Work Phone: Start: 08-05-2022 Prosthetic total arthroplasty of right shoulder DR FLAQUITA BAUTISTA MD Start: 10-05-2018 Prosthetic arthropla sty of shoulder AARON PIERRE BACK PANEL PADDER-STAPLE FIBER WASHER Plan of Treatment Date Care Activity Detail Author Start: 05-11-2030 DTaP/Tdap/Td Vaccines (3 - Td or Tdap) DTaP/Tdap/Td Vaccines (3 - Td or Tdap) [facility] Start: 04-14-2028 Lipid panel Lipid Panel [facility] Start: 02-17-2024 End: 02-17-2024 Patient encounter procedure 02/17/2024 9:45 AM EDT Office Visit [facility] [address] [place] [id number] Blake Bullock MD [address] [address] [facility] Start: 06-30-2023 End: 06-30-2023 Professional / ancillary services management 06/30/2023 2:30 PM EST Ancillary Procedure [facility] [address] [place] [address] [facility] Start: 04-13-2023 End: 04-13-2023 Patient encounter procedure [facility] Start: 03-20-2023 End: 03-20-2023 Professional / ancillary services management 03/20/2023 10:00 AM EST Ancillary Procedure [facility] [address] [place] [address] [facility] Start: 03-16-2023 End: 03-16-2024 Basic metabolic 1998 panel - Serum or Plasma Basic metabolic panel Lab Routine Essential hypertension Expected: 03/16/2023 (Approximate), Expires: 03/16/2024 [facility] Work Phone: Immunizations Immunization Date Immunization Notes Care Provider Fa cility 07-20-2020 SARS-CoV-2 mRNA (tozinameran) vaccine AARON PIERRE APRN-STAPLE FIBER WASHER [facility] 06-29-2020 SARS-CoV-2 mRNA (tozinameran) vaccine AARON PIERRE APRN-STAPLE FIBER WASHER [facility] 05-11-2020 tetanus toxoid, redu morena diphtheria toxoid, and acellular pertussis vaccine, adsorbed AARON PIERRE BACK PANEL PADDER-STAPLE FIBER WASHER [facility] 02-02-2020 influenza virus vacc ine, unspecified formulation AARON PIERRE BACK PANEL PADDER-STAPLE FIBER WASHER [facility] 05-31-2019 pneumococcal polysaccharide vaccine, 23 valent; Translations: [Pneumovax 23] AARON PIERRE BACK PANEL PADDER-STAPLE FIBER WASHER [facility] 02-08-2019 influenza virus vacc ine, unspecified formulation AARON PIERRE BACK PANEL PADDER-STAPLE FIBER WASHER [facility] 02-05-2017 influenza virus vacc ine, unspecified formulation AARON PIERRE BACK PANEL PADDER-STAPLE FIBER WASHER [facility] 02-19-2016 influenza virus vacc ine, unspecified formulation AARON PIERRE BACK PANEL PADDER-STAPLE FIBER WASHER [facility] 02-02-2015 influenza virus vacc ine, unspecified formulation AARON PIERRE BACK PANEL PADDER-STAPLE FIBER WASHER [facility] 02-02-2015 pneumococcal conjuga te vaccine, 13 valent AARON PIERRE BACK PANEL PADDER-STAPLE FIBER WASHER [facility] 01-25-2014 influenza virus vacc ine, unspecified formulation AARON PIERRE BACK PANEL PADDER-STAPLE FIBER WASHER [facility] 02-24-2007 influenza virus vacc ine, unspecified formulation AARON PIERRE BACK PANEL PADDER-STAPLE FIBER WASHER [facility] 02-24-2007 pneumococcal polysaccharide vaccine, 23 valent AARON PIERRE BACK PANEL PADDER-STAPLE FIBER WASHER [facility] 02-24-2007 tetanus toxoid, redu morena diphtheria toxoid, and acellular pertussis vaccine, adsorbed AARON PIERRE BACK PANEL PADDER-STAPLE FIBER WASHER [facility] Payers Date Payer Category Payer Medicare [id number] 2006 Medicare MEDICARE MEDICAR E PART A AND B [id number] 2006-Present [address] [place] [address] Medicare [id number] 2005 Private Health Insurance KAVON FROST [id number] 2005-Present [address] [place] [address] Commercial [id number] 2005 Private Health Insurance [id number] 1941 Unknown [id number] 1941 Unknown [id number] .[id number] 1941 Unknown [id number] .[id number] 1941 Unknown [id number] .[id number] 1941 Unknown [id number] .[id number] 1941 Unknown [id number] [id number] .2.627 1941 Unknown [id number] .2.627 1941 Unknown [id number] [id number] .2.627 1941 Unknown [id number] .2.627 1941 Unknown [id number] [id number] .2.627 1941 Unknown [id number] .[id number] 1941 Unknown [id number] .[id number] Social History Date Type Detail Facility Start: 04-08-2019 Never smoked t obacco (finding) [facility] Sex Assigned At Female [facility] Start: 01-08-2022 End: 04-13-2023 Alcohol intake Current non-drinker of alcohol (finding) [facility] Start: 01-08-2022 End: 04-13-2023 History of Social function [facility] Start: 01-08-2022 End: 04-13-2023 Tobacco use panel [facility] Start: 1940 Sex Assigned At Not on file [facility] Start: 11-08-2022 End: 11-18-2022 Exposure to SARS-CoV-2 (event) Not sure [facility] Medical Equipment Procedure Code Equipment Code Equipment Origin al Text Equipment Identifier Dates FDA Start: 10-05-2018 FDA Start: 10-05-2018 FDA Start: 10-05-2018 FDA Start: 10-05-2018 FDA Start: 10-05-2018 FDA Start: 10-05-2018 FDA Start: 10-05-2018 FDA Start: 10-05-2018 Unknown Unknown 19 Unknown Unknown FDA Start: 10-05-2018 FDA Start: 10-05-2018 FDA Start: 10-05-2018 FDA Start: 10-05-2018 FDA Start: 10-05-2018 FDA Start: 10-05-2018 FDA Start: 10-05-2018 FDA Start: 10-05-2018 Unknown Unknown //19 Unknown Unknown FDA Start: 10-05-2018 FDA Start: 10-05-2018 FDA Start: 10-05-2018 FDA Start: 10-05-2018 FDA Start: 10-05-2018 FDA Start: 10-05-2018 FDA Start: 10-05-2018 FDA Start: 10-05-2018 Unknown Unknown 04/27/16 Unknown Unknown FDA Start: 04-27-2016 Unknown Unknown 10/05/18 Unknown Unknown FDA Start: 10-05-2018 FDA Start: 10-05-2018 FDA Start: 10-05-2018 FDA Start: 10-05-2018 FDA Start: 10-05-2018 FDA Start: 10-05-2018 FDA Start: 10-05-2018 FDA Start: 10-05-2018 Unknown Unknown 04/27/16 Unknown Unknown FDA Start: 04-27-2016 Unknown Unknown 10/05/18 Unknown Unknown FDA Start: 10-05-2018 FDA Start: 10-05-2018 FDA Start: 10-05-2018 FDA Start: 10-05-2018 FDA Start: 10-05-2018 FDA Start: 10-05-2018 FDA Start: 10-05-2018 FDA Start: 10-05-2018 Unknown Unknown 17 Unknown Unknown FDA Start: 04-27-2016 Unknown Unknown 10/05/19 Unknown Unknown FDA Start: 10-05-2018 FDA Start: 10-05-2018 FDA Start: 10-05-2018 FDA Start: 10-05-2018 FDA Start: 10-05-2018 FDA Start: 10-05-2018 FDA Start: 10-05-2018 FDA Start: 10-05-2018 Unknown Unknown 04/27/16 Unknown Unknown FDA Start: 04-27-2016 Unknown Unknown //19 Unknown Unknown FDA Start: 10-05-2018 FDA Start: 10-05-2018 FDA Start: 10-05-2018 FDA Start: 10-05-2018 FDA Start: 10-05-2018 FDA Start: 10-05-2018 FDA Start: 10-05-2018 FDA Start: 10-05-2018 Unknown Unknown 04/27/16 Unknown Unknown FDA Start: 04-27-2016 Unknown Unknown 10/05/18 Unknown Unknown FDA Start: 10-05-2018 FDA Start: 10-05-2018 FDA Start: 10-05-2018 FDA Start: 10-05-2018 FDA Start: 10-05-2018 FDA Start: 10-05-2018 FDA Start: 10-05-2018 FDA Start: 10-05-2018 Unknown Unknown 04/27/16 Unknown Unknown FDA Start: 04-27-2016 Unknown Unknown 10/05/18 Unknown Unknown FDA Start: 10-05-2018 FDA Start: 10-05-2018 FDA Start: 10-05-2018 FDA Start: 10-05-2018 FDA Start: 10-05-2018 FDA Start: 10-05-2018 FDA Start: 10-05-2018 FDA Start: 10-05-2018 Unknown Unknown 04/27/16 Unknown Unknown FDA Start: 04-27-2016 Unknown Unknown 10/05/18 Unknown Unknown FDA Start: 10-05-2018 FDA Start: 10-05-2018 FDA Start: 10-05-2018 FDA Start: 10-05-2018 FDA Start: 10-05-2018 FDA Start: 10-05-2018 FDA Start: 10-05-2018 FDA Start: 10-05-2018 Unknown Unknown 04/27/16 Unknown Unknown FDA Start: 04-27-2016 [id number] [employer] Nov[employer] Mri Surescan [id number] Start: 11-19-2006 [id number] Revo Mri [id number] Start: 07-31-2014 Unknown Unknown 10/05/18 Unknown Unknown FDA Start: 10-05-2018 FDA Start: 10-05-2018 FDA Start: 10-05-2018 FDA Start: 10-05-2018 FDA Start: 10-05-2018 FDA Start: 10-05-2018 FDA Start: 10-05-2018 FDA Start: 10-05-2018 Unknown Unknown 04/27/16 Unknown Unknown FDA Start: 04-27-2016 [id number] [employer] [id number] Start: 11-19-2006 Functional Status Date Assessment Result Facility 08-06-2022 Functional Status 2 [facility]e [facility] 08-06-2022 [facility] Status [facility] Functional Status Russel Hyde [facility] 08-05-2022 Functional Status Russel Hyde [facility] 08-05-2022 Functional Status Assistive Equipment ice on [facility] 08-05-2022 Functional Status Driving, 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, Home management, Housework, Laundry, Meal preparation, Personal ADL, Shopping [facility] 08-05-2022 Functional Status [facility] Functional Status Russel Hyde [facility] 08-05-2022 Functional Status Maintained, More than 8 hours [facility] 07-18-2022 Functional Status Sensory Defici ts Hearing deficit, left ear, Hearing deficit, right ear [facility] 03-08-2022 Functional Status Single level home [facility] 03-08-2022 Functional Status Room check performed [facility] 03-08-2022 Functional Status Russel Hyde [facility] [place] 03-08-2022 Functional Status Russel Hyde [facility] 03-07-2022 Functional Status Sensory Deficits None A [facility] Mental Status Date Assessment Result Facility 08-06-2022 Mental Status Orientation Asse ssment Oriented x 4 [facility] 08-06-2022 Mental Status Oriented x 4 [facility] 08-06-2022 [facility] Status [facility] 08-05-2022 [facility] Status [facility] 03-08-2022 Mental Status Oriented x 4 [facility] 03-07-2022 Mental Status [facility] Clinical Notes 03-07-2022 to 04-13-2023 Telephone Encounter - Letty Martinez RN - 03/31/2023 11:16 AM ESTTelephone Encounter - Letty Martinez RN - 03/31/2023 11:16 AM ESTTelephone Encounter - Kenya Arredondo RN - 03/30/2023 8:14 AM EST Note Date & Type Note Facility 04-13-2023 Note Addended by: RODNEY HUNTER on: 04/14/2023 01:40 PM Modules accepted: Orders [facility] 03-31-2023 Telephone encount er Note She went to have BMP drawn said no order was faxed there? She will just have BMP done next week at [facility] PCP office [facility] 03-31-2023 Miscellaneous Notes Formattin g of this note might be different from the original. She went to have BMP drawn said no order was faxed there? She will just have BMP done next week at [facility] PCP office PC to [employer]---no answer. Fax sent requesting BMP. Lab order faxed to [facility]. Spoke with pt. Stop carvedilol. Will go back to prior metoprolol per her request Start lisinopril 5mg daily. BPM in 1 wk. 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 Normal pacemaker function. No arrhythmias noted. Contact patient please and have her send manual remote today she is scheduled for 11.24.23. Pt calling C/O increased palpitations since change of Toprol to coreg on 02/17/23 Initially took one week to adjust to coreg had low Bps no recordings I have never had so many palpations my heart is going crazy Pt reports Bps 130-150's/80's daily she only wrote one down today's 153/91 before med She has 6.25 mg tablets She is taking 1.5 tablets in am self taking 0.5 tablet noon and 1.5 table in evening But this increase has not helped with palpitations or BP per pt Pt wants Toprol back and a different BP med Also wants to send remote today instead of Thursday Pt calling in today with complaints of palpitations. Pt states that she has been on the carvedilol for about 3 weeks. States she did okay at first but about a week in started having symptoms. Pt states he is awakened with her heart going nuts. documented in this encounter [facility] 03-30-2023 Emergency department Note Associated Order(s): [facility] SPECIFIC POCUS ORDER EMERGENCY DEPARTMENT ENCOUNTER Pt Name: Fabienne Chu Birthdate 1940 Date of evaluation: 03/30/2023 ED Provider: Doe Herman MD CHIEF COMPLAINT Chief Complaint Patient presents with Ankle Pain Left HISTORY OF PRESENT ILLNESS (Location/Symptom, Timing/Onset, Context/Setting, Quality, Duration, Modifying Factors, Severity) Note limiting factors. I wore appropriate PPE for the entirety of this encounter. HPI Fabienne Chu is a 83 y.o. who presents to the emergency department complaining of sudden onset left calf pain. She states she was walking with her cane when she developed pain in her posterior calf. States that she has been seen fancy packer, Dr. Saravia and going to physical therapy. She denies any ankle or foot pain. Reports discomfort with plantarflexion of ankle/foot Nursing Notes were reviewed. REVIEW OF SYSTEMS Review of Systems Constitutional: Negative for chills and fever. Respiratory: Negative for shortness of breath. Cardiovascular: Negative for chest pain. Musculoskeletal: Left calf pain Skin: Negative for wound. Hematological: Bruises/bleeds easily (On Eliquis). 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 LISINOPRIL 5 MG TABLET Take 1 tablet (5 mg) by mouth daily. MAGNESIUM 250 MG TABLET Take 250 mg by mouth Nightly. METOPROLOL SUCCINATE XL (TOPROL-XL) 50 MG 24 HR TABLET Take 50 mg by mouth. 1 tab AM, 1-1.5 tabs PM. Do not crush or chew. PRAMIPEXOLE (MIRAPEX) 0.5 MG TABLET 0.5 mg. ALLERGIES Iodinated contrast media, Morphine, Celecoxib, Gabapentin, Indomethacin, Meloxicam, Omeprazole, Orphenadrine, Propoxyphene, Atenolol, Iodine, Gadolinium, and Oxybutynin FAMILY HISTORY Family History Problem Relation Name Age of Onset No Known Problems Father No Known Problems Mother SOCIAL HISTORY Social History Socioeconomic History Marital status: Tobacco Use Smoking status: Never Smokeless tobacco: Never Vaping Use Vaping Use: Never used Substance and Sexual Activity Alcohol use: No Drug use: No SCREENINGS PHYSICAL EXAM ED Triage Vitals [03/30/23 1457] Temp Heart Rate Resp BP 36.7 C (98.1 F) 75 18 (!) 191/87 SpO2 Temp Source Heart Rate Source Patient Position 100 % Oral Monitor Sitting BP Location FiO2 (%) Right arm -- Physical Exam Vitals and nursing note reviewed. Constitutional: General: She is not in acute distress. Comments: 83-year-old elderly female HENT: Head: Normocephalic and atraumatic. Cardiovascular: Rate and Rhythm: Normal rate. Pulses: Normal pulses. Comments: Palpable dorsalis and tibialis posterior pulses Pulmonary: Effort: Pulmonary effort is normal. Musculoskeletal: Cervical back: Normal range of motion. Comments: Left posterior calf tenderness. Discomfort with discomfort with dorsiflexion of ankle. Skin: General: Skin is warm and dry. Neurological: Mental Status: She is alert. Comments: Patient has sensation intact to light touch from L1-S1. She has discomfort with dorsiflexion and plantarflexion of ankle, foot but still is able to actively do that. Intact flexion extension of knee. DIAGNOSTIC RESULTS RADIOLOGY (Per Emergency Physician): Interpretation per the Radiologist below, if available at the time of this note: No orders to display LABS: Labs Reviewed - No data to display All other labs were within normal range or not returned as of this dictation. EMERGENCY DEPARTMENT COURSE and DIFFERENTIAL DIAGNOSIS/MDM: Vitals: Vitals: 03/30/23 1457 BP: (!) 191/87 BP Location: Right arm Patient Position: Sitting Pulse: 75 Resp: 18 Temp: 36.7 C (98.1 F) TempSrc: Oral SpO2: 100% Weight: 77.1 kg (170 lb) Medications - No data to display Evaluated for left calf pain after reported tripping and injury. She has no osseous tenderness or deformity. She has calf muscle tenderness. Patient has discomfort with dorsi and plantarflexion of ankle. She reportedly has a previous Achilles injury that she has been dealing with since November. This is felt to be consistent with an acute exacerbation, calf muscle strain. [id number] ultrasound was negative for complete Achilles tendon rupture and appear to be intact. Patient treated symptomatically with oral oxycodone. She states she cannot take NSAIDs and has previously tolerated oxycodone. Patient placed on scheduled acetaminophen. Provided Jackson wrap. Placed on a short Medrol Dosepak. Encouraged to follow-up with her fancy packer and provided referral to orthopedic sports medicine. Discharged in improved condition. Provided prescription for walker to use instead of cane. PROCEDURES: Unless otherwise noted below, none [facility] SPECIFIC POCUS ORDER Performed by: Deo Herman MD Authorized by: Deo Herman MD Indications for Ultrasound: Calf pain Credentialed Provider Attestation: Are you an Ultrasound Credentialed Provider?: Yes Does PoC US immage meet quality guidelines?: Adequate Is PoC US Chargeable?: $Charge$ Signed: Deo Herman Comments: Obtain musculoskeletal views of Achilles and calf muscles. Achilles tendon appears intact. Reviewed popliteal vein. Compressible. Interpretation intact Achilles tendon. FINAL IMPRESSION 1. Strain of calf muscle, left, initial encounter 2. Pain of left calf DISPOSITION PATIENT REFERRED TO: No follow-up provider specified. DISCHARGE MEDICATIONS: New Prescriptions No medications on file (Comment: Please note this report has been produced using speech recognition software and may contain errors related to that system including errors in grammar, punctuation, and spelling, as well as words and phrases that may be inappropriate. If there are any questions or concerns please feel free to contact the dictating provider for clarification.) Deo Herman MD (electronically signed) Emergency Medicine Provider Deo Herman MD 03/30/23 1557 Patient arrived via wheelchair to room 15. Patient transferred from wheelchair to ED bed without difficulty. Patient states she re-injured her left achilles tendon today when she tripped over her dog. Patient states she originally injured ankle in November and has been doing PT for injuring. Patient arrived with ortho boot on and states pain 10/10. Last dose of Aleve GROOVING LATHE TENDER. documented in this encounter [facility] 03-30-2023 Emergency department Triage note Patient arrived via wheelchair to room 15. Patient transferred from wheelchair to ED bed without difficulty. Patient states she re-injured her left achilles tendon today when she tripped over her dog. Patient states she originally injured ankle in November and has been doing PT for injuring. Patient arrived with ortho boot on and states pain 10/10. Last dose of Aleve GROOVING LATHE TENDER. [facility] 03-30-2023 Physician Emergen cy department Note Associated Order(s): [facility] SPECIFIC POCUS ORDER EMERGENCY DEPARTMENT ENCOUNTER Pt Name: Fabienne Chu Birthdate 1940 Date of evaluation: 03/30/2023 ED Provider: Deo Herman MD CHIEF COMPLAINT Chief Complaint Patient presents with Ankle Pain Left HISTORY OF PRESENT ILLNESS (Location/Symptom, Timing/Onset, Context/Setting, Quality, Duration, Modifying Factors, Severity) Note limiting factors. I wore appropriate PPE for the entirety of this encounter. HPI Fabienne Chu is a 83 y.o. who presents to the emergency department complaining of sudden onset left calf pain. She states she was walking with her cane when she developed pain in her posterior calf. States that she has been seen fancy packer, Dr. Saravia and going to physical therapy. She denies any ankle or foot pain. Reports discomfort with plantarflexion of ankle/foot Nursing Notes were reviewed. REVIEW OF SYSTEMS Review of Systems Constitutional: Negative for chills and fever. Respiratory: Negative for shortness of breath. Cardiovascular: Negative for chest pain. Musculoskeletal: Left calf pain Skin: Negative for wound. Hematological: Bruises/bleeds easily (On Eliquis). 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 LISINOPRIL 5 MG TABLET Take 1 tablet (5 mg) by mouth daily. MAGNESIUM 250 MG TABLET Take 250 mg by mouth Nightly. METOPROLOL SUCCINATE XL (TOPROL-XL) 50 MG 24 HR TABLET Take 50 mg by mouth. 1 tab AM, 1-1.5 tabs PM. Do not crush or chew. PRAMIPEXOLE (MIRAPEX) 0.5 MG TABLET 0.5 mg. ALLERGIES Iodinated contrast media, Morphine, Celecoxib, Gabapentin, Indomethacin, Meloxicam, Omeprazole, Orphenadrine, Propoxyphene, Atenolol, Iodine, Gadolinium, and Oxybutynin FAMILY HISTORY Family History Problem Relation Name Age of Onset No Known Problems Father No Known Problems Mother SOCIAL HISTORY Social History Socioeconomic History Marital status: Tobacco Use Smoking status: Never Smokeless tobacco: Never Vaping Use Vaping Use: Never used Substance and Sexual Activity Alcohol use: No Drug use: No SCREENINGS PHYSICAL EXAM ED Triage Vitals [03/30/23 1457] Temp Heart Rate Resp BP 36.7 C (98.1 F) 75 18 (!) 191/87 SpO2 Temp Source Heart Rate Source Patient Position 100 % Oral Monitor Sitting BP Location FiO2 (%) Right arm -- Physical Exam Vitals and nursing note reviewed. Constitutional: General: She is not in acute distress. Comments: 83-year-old elderly female HENT: Head: Normocephalic and atraumatic. Cardiovascular: Rate and Rhythm: Normal rate. Pulses: Normal pulses. Comments: Palpable dorsalis and tibialis posterior pulses Pulmonary: Effort: Pulmonary effort is normal. Musculoskeletal: Cervical back: Normal range of motion. Comments: Left posterior calf tenderness. Discomfort with discomfort with dorsiflexion of ankle. Skin: General: Skin is warm and dry. Neurological: Mental Status: She is alert. Comments: Patient has sensation intact to light touch from L1-S1. She has discomfort with dorsiflexion and plantarflexion of ankle, foot but still is able to actively do that. Intact flexion extension of knee. DIAGNOSTIC RESULTS RADIOLOGY (Per Emergency Physician): Interpretation per the Radiologist below, if available at the time of this note: No orders to display LABS: Labs Reviewed - No data to display All other labs were within normal range or not returned as of this dictation. EMERGENCY DEPARTMENT COURSE and DIFFERENTIAL DIAGNOSIS/MDM: Vitals: Vitals: 03/30/23 1457 BP: (!) 191/87 BP Location: Right arm Patient Position: Sitting Pulse: 75 Resp: 18 Temp: 36.7 C (98.1 F) TempSrc: Oral SpO2: 100% Weight: 77.1 kg (170 lb) Medications - No data to display Evaluated for left calf pain after reported tripping and injury. She has no osseous tenderness or deformity. She has calf muscle tenderness. Patient has discomfort with dorsi and plantarflexion of ankle. She reportedly has a previous Achilles injury that she has been dealing with since November. This is felt to be consistent with an acute exacerbation, calf muscle strain. Ccacb-[id number] ultrasound was negative for complete Achilles tendon rupture and appear to be intact. Patient treated symptomatically with oral oxycodone. She states she cannot take NSAIDs and has previously tolerated oxycodone. Patient placed on scheduled acetaminophen. Provided Jackson wrap. Placed on a short Medrol Dosepak. Encouraged to follow-up with her fancy packer and provided referral to orthopedic sports medicine. Discharged in improved condition. Provided prescription for walker to use instead of cane. PROCEDURES: Unless otherwise noted below, none [facility] SPECIFIC POCUS ORDER Performed by: Deo Herman MD Authorized by: Deo Herman MD Indications for Ultrasound: Calf pain Credentialed Provider Attestation: Are you an Ultrasound Credentialed Provider?: Yes Does PoC US immage meet quality guidelines?: Adequate Is PoC US Chargeable?: $Charge$ Signed: Deo Herman Comments: Obtain musculoskeletal views of Achilles and calf muscles. Achilles tendon appears intact. Reviewed popliteal vein. Compressible. Interpretation intact Achilles tendon. FINAL IMPRESSION 1. Strain of calf muscle, left, initial encounter 2. Pain of left calf DISPOSITION PATIENT REFERRED TO: No follow-up provider specified. DISCHARGE MEDICATIONS: New Prescriptions No medications on file (Comment: Please note this report has been produced using speech recognition software and may contain errors related to that system including errors in grammar, punctuation, and spelling, as well as words and phrases that may be inappropriate. If there are any questions or concerns please feel free to contact the dictating provider for clarification.) Deo Herman MD (electronically signed) Emergency Medicine Provider Deo Herman MD 03/30/23 1884 [facility] [employer] 03-30-2023 Telephone encount er Note PC to [employer]---no answer. Fax sent requesting BMP. [facility] [employer] 03-30-2023 Miscellaneous Notes Formattin g of this note might be different from the original. to [employer]---no answer. Fax sent requesting BMP. Lab order faxed to [facility]. Spoke with pt. Stop carvedilol. Will go back to prior metoprolol per her request Start lisinopril 5mg daily. BPM in 1 wk. 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 Normal pacemaker function. No arrhythmias noted. Contact patient please and have her send manual remote today she is scheduled for 03.20.23. Pt calling C/O increased palpitations since change of Toprol to coreg on 02/17/23 Initially took one week to adjust to coreg had low Bps no recordings I have never had so many palpations my heart is going crazy Pt reports Bps 130-150's/80's daily she only wrote one down today's 153/91 before med She has 6.25 mg tablets She is taking 1.5 tablets in am self taking 0.5 tablet noon and 1.5 table in evening But this increase has not helped with palpitations or BP per pt Pt wants Toprol back and a different BP med Also wants to send remote today instead of Thursday Pt calling in today with complaints of palpitations. Pt states that she has been on the carvedilol for about 3 weeks. States she did okay at first but about a week in started having symptoms. Pt states he is awakened with her heart going nuts. documented in this encounter [employer] 03-16-2023 Telephone encount er Note Lab order faxed to [facility] [place]. [facility] [employer] 03-16-2023 Telephone encount er Note Spoke with pt. Stop carvedilol. Will go back to prior metoprolol per her request Start lisinopril 5mg daily. BPM in 1 wk. 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 Normal pacemaker function. No arrhythmias noted. [facility] [employer] 03-16-2023 Telephone encount er Note Contact patient please and have her send manual remote today she is scheduled for 03.20.23. [facility] [employer] 03-16-2023 Telephone encount er Note Pt calling C/O increased palpitations since change of Toprol to coreg on 02/17/23 Initially took one week to adjust to coreg had low Bps no recordings I have never had so many palpations my heart is going crazy Pt reports Bps 130-150's/80's daily she only wrote one down today's 153/91 before med She has 6.25 mg tablets She is taking 1.5 tablets in am self taking 0.5 tablet noon and 1.5 table in evening But this increase has not helped with palpitations or BP per pt Pt wants Toprol back and a different BP med Also wants to send remote today instead of Thursday [facility] [employer] 03-16-2023 Telephone encount er Note Pt calling in today with complaints of palpitations. Pt states that she has been on the carvedilol for about 3 weeks. States she did okay at first but about a week in started having symptoms. Pt states he is awakened with her heart going nuts. [facility] [employer] 02-17-2023 Telephone encount er Note Called pt. Will switch metoprolol 100mgAM/50mgPM to carvedilol 12.5mgAM/6.25mgPM [facility] [employer] 02-17-2023 Miscellaneous Notes Formattin g of this note might be different from the original. Called pt. Will switch metoprolol 100mgAM/50mgPM to carvedilol 12.5mgAM/6.25mgPM Last OV JKS01/21 Jordin was DCD due to swelling Toprol increased to 100 mg in am and 50 mg in pm due to elevated Bps She randomly checks at home before med's and later in day She sits quietly for 15 min, has old cuff not checked by an office in a long time, SBP 140-170's/80-90's She tried taking 100 mg in PM yesterday but this made her too tired Today BP 153/90 prior to med's 4 hours later 149/79 She is asking for an additional med ( only tried norvasc) Wants [place] for any FU Pt calling in with elevated BP concerns. Pt states that yesterday evening she took additional done of her metoprolol (whole pill). This AM BP 153/90. Took additional dose of metoprolol (whole pill) repeat 149/79. Not having the dizziness as before but doesn't think additional metoprolol is helping. documented in this encounter [facility] 02-17-2023 Telephone encount er Note Last OV JKS01/21 Sabinovasc was DCD due to swelling Toprol increased to 100 mg in am and 50 mg in pm due to elevated Bps She randomly checks at home before med's and later in day She sits quietly for 15 min, has old cuff not checked by an office in a long time, SBP 140-170's/80-90's She tried taking 100 mg in PM yesterday but this made her too tired Today BP 153/90 prior to med's 4 hours later 149/79 She is asking for an additional med ( only tried norvasc) Wants [place] for any FU [facility] 02-17-2023 Telephone encount er Note Pt calling in with elevated BP concerns. Pt states that yesterday evening she took additional done of her metoprolol (whole pill). This AM BP 153/90. Took additional dose of metoprolol (whole pill) repeat 149/79. Not having the dizziness as before but doesn't think additional metoprolol is helping. [facility] 01-21-2023 History of Presen t illness Narrative [facility] Cardiology Note Chief Complaint: Chief Complaint Patient presents with Annual Exam History of Present Illness: Fabienne Chu is a 82 y.o. female presenting for continued evaluation of hypertension in the setting of AV block status post permanent pacemaker with subsequent generator change in 2014. She complains of amlodipine causing significant lower extremity edema. She has tried cutting the pill in half taking two-point 5 in the morning and two-point 5 in the evening but still has troublesome swelling. She presently takes 50 metoprolol succinate twice daily without excessive fatigue. She has not required an extra 25 mg to control her blood pressure. No trouble at the pacemaker site. No significant palpitation. 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 Celecoxib Nausea And Vomiting and Other abd pain Gabapentin Other Indomethacin Other Meloxicam Other Omeprazole Other Orphenadrine Other Propoxyphene Other Atenolol Other unknown Iodine Unknown unknown Gadolinium Rash Oxybutynin Palpitations Medications: Current Outpatient Medications: amLODIPine (Norvasc) 5 MG tablet, Take 1 tablet (5 mg) by mouth daily. (Patient taking differently: Take 5 mg by mouth daily. 2.5 mg BID), Disp: 30 tablet, Rfl: 3 Eliquis 5 MG tablet, Take 1 tablet (5 mg) by mouth 2 times daily., Disp: 180 tablet, Rfl: 3 magnesium 250 MG tablet, Take 250 mg by mouth Nightly., Disp: , Rfl: metoprolol succinate XL (Toprol-XL) 50 MG 24 hr tablet, take 1 tablet by mouth every morning and take 1 and 1/2 tablets by mouth every evening, Disp: 225 tablet, Rfl: 3 pramipexole (Mirapex) 0.5 MG tablet, 0.5 mg., Disp: , Rfl: Review of Systems: Review of Systems Constitutional: Negative. Negative for activity change, chills, diaphoresis, fatigue and fever. HENT: Negative. Negative for nosebleeds and trouble swallowing. Eyes: Negative. Negative for discharge and visual disturbance. Respiratory: Negative. Negative for apnea, cough, chest tightness, shortness of breath and wheezing. Cardiovascular: Negative. Negative for chest pain, palpitations and leg swelling. Gastrointestinal: Negative. Negative for abdominal distention, abdominal pain, blood in stool, diarrhea, nausea and vomiting. Endocrine: Negative. Negative for cold intolerance and heat intolerance. Genitourinary: Negative. Negative for hematuria. Musculoskeletal: Negative. Negative for gait problem and myalgias. Skin: Negative. Negative for color change and rash. Neurological: Negative. Negative for dizziness, seizures, syncope, facial asymmetry, speech difficulty, weakness, light-headedness, numbness and headaches. Hematological: Negative. Does not bruise/bleed easily. Psychiatric/Behavioral: Negative. Negative for dysphoric mood. Physical Examination: Vitals: Vitals: 01/21/23 1046 BP: (!) 160/100 BP Location: Left arm Patient Position: Sitting BP Cuff Size: Adult Pulse: 91 Resp: 16 SpO2: 98% Weight: 178 lb 6.4 oz (80.9 kg) Height: 5' 2 (1.575 m) Body mass index is 32.63 kg/m . Physical Exam Vitals reviewed. Constitutional: Appearance: Normal appearance. HENT: Head: Normocephalic. Right Ear: External ear normal. Left Ear: External ear normal. Nose: Nose normal. Mouth/Throat: Mouth: Mucous membranes are moist. Eyes: Pupils: Pupils are equal, round, and reactive to light. Cardiovascular: Rate and Rhythm: Normal rate and regular rhythm. Heart sounds: No murmur heard. Pulmonary: Breath sounds: No wheezing. Musculoskeletal: General: Normal range of motion. Right lower leg: No edema. Left lower leg: No edema. Skin: General: Skin is warm and dry. Coloration: Skin is not jaundiced. Neurological: General: No focal deficit present. Mental Status: She is alert. Motor: No weakness. Gait: Gait normal. Psychiatric: Mood and Affect: Mood normal. Behavior: Behavior normal. Thought Content: Thought content normal. Judgment: Judgment normal. Laboratory Tests: Lab Results Component Value Date WBC 8.1 01/08/2022 HGB 14.7 01/08/2022 MCV 86.7 01/08/2022 Lab Results Component Value Date GLUCOSE 124 (H) 01/08/2022 CALCIUM 8.5 01/08/2022 NA 139 01/08/2022 K 4.0 01/08/2022 CO2 29 01/08/2022 CL 102 01/08/2022 BUN 14 01/08/2022 CREATININE 0.94 01/08/2022 @LASTCMP@ No results found for: CHLPL , CHOL No results found for: TRIG No results found for: HDL No results found for: LDLCALC Assessment and Plan: Hypertension: She is displeased with the side effects of amlodipine therefore we will discontinue it. After washing out for couple of days she will then initiate 100 mg of metoprolol succinate in the morning and 50 in the evening and get back with us in several weeks regarding how she is feeling in terms of tensional side effects and how her blood pressure is running. If things are agreeable we can send in new prescription. Complete heart block: Permanent pacemaker is well-healed. Parameters are in good order. Battery voltage 2.89 with BELL RINGER at 2.81. Heart rate histograms are excellent for her age. She will follow device clinic per routine. Atrial fibrillation: Minimal burden. Given her increased risk of stroke and atrial fibrillation however would continue Eliquis 5 mg twice daily. At this point no need for antiarrhythmic drug therapy. documented in this encounter [facility] [employer] 11-13-2022 Telephone encount er Note Name of caller: Fabienne Contact phone number: [phone] Relationship to Patient: patient Provider: JERRY Wright Practice: [facility] Chief Complaint/Reason for Call: Patient is requesting a call back to reschedule her appointment due to location. Please advise Best time of day caller can be reached: Any Patient advised that office/PCP has 24-48 business hours to return their call: Yes [facility] [employer] 11-13-2022 Miscellaneous Notes Formattin g of this note might be different from the original. Name of caller: Fabienne Contact phone number: [phone] Relationship to Patient: patient Provider: JERRY Wright Practice: [facility] Chief Complaint/Reason for Call: Patient is requesting a call back to reschedule her appointment due to location. Please advise Best time of day caller can be reached: Any Patient advised that office/PCP has 24-48 business hours to return their call: Yes documented in this encounter [facility] [employer] 11-12-2022 Telephone encount er Note PC to pt---agreeable to appt. 11/17 at 1:30. She will bring her BP cuff. [facility] [employer] 11-12-2022 Telephone encount er Note Can we schedule her sooner with Dr. Bullock or myself in office? Advise her to bring in her BP cuff as well. Alternatively, she could also see her PCP for BP check as well . [facility] [employer] 11-12-2022 Telephone encount er Note Pt calling in today stating she is still having some elevated BP's. Pt states she was seen for testing yesterday and BP was all over the place . Pt reports even when at home BP fluctuate between 115 and 180s. [facility] [employer] 11-04-2022 Telephone encount er Note Lightheadedness Onset in July after shoulder surgery Called today because of elevated BP (progressive in nautre) No CP or trouble breathing. Mild TYSON. No stroke like symptoms. Taking Metoprolol 50mg BID, with an additional half tablet at noon (started this back in July too). Add amlodipine 5mg daily. Discussed signs and symptoms of hypertensive urgency/emergency and when to see 911/ER care. She will call if no improvement over the next 3-7days. [facility] 11-04-2022 Miscellaneous Notes Formattin g of this note might be different from the original. Lightheadedness Onset in July after shoulder surgery Called today because of elevated BP (progressive in nautre) No CP or trouble breathing. Mild TYSON. No stroke like symptoms. Taking Metoprolol 50mg BID, with an additional half tablet at noon (started this back in July too). Add amlodipine 5mg daily. Discussed signs and symptoms of hypertensive urgency/emergency and when to see 911/ER care. She will call if no improvement over the next 3-7days. Pacemaker remote received with normal device function and no events and pt notifed. Spoke with pt C/O increasing fatigue since shoulder surgery July 2022, also C/O intermittent lightheaded, weakness in legs No SOB no CP BP usually 150's/80's for past week SBP 180's HR 70-90's She is unsure if she is having any Afib She is concerned about elevated BP but has been eating olives and salty food she will watch Takes Toprol 50 mg BID she self taking extra 50 mg tablet at noon to help this BP Last device check 08/13 She will send today Last seen 12/2021 Pt calling today reporting elevated BP 188/86 HR's in the 70's to 90's. Pt complains of dizziness/lightheaded. No SOB. Generally does not feel the best. documented in this encounter [employer] 11-04-2022 Telephone encount er Note Pacemaker remote received with normal device function and no events and pt notifed. [employer] 11-04-2022 Telephone encount er Note Spoke with pt C/O increasing fatigue since shoulder surgery July 2022, also C/O intermittent lightheaded, weakness in legs No SOB no CP BP usually 150's/80's for past week SBP 180's HR 70-90's She is unsure if she is having any Afib She is concerned about elevated BP but has been eating olives and salty food she will watch Takes Toprol 50 mg BID she self taking extra 50 mg tablet at noon to help this BP Last device check 08/13 She will send today Last seen 12/2021 [employer] 11-04-2022 Telephone encount er Note Pt calling today reporting elevated BP 188/86 HR's in the 70's to 90's. Pt complains of dizziness/lightheaded. No SOB. Generally does not feel the best. [employer] 09-13-2022 Miscellaneous Notes Formattin g of this note might be different from the original. Lab order faxed to [facility]. Spoke with pt. Stop carvedilol. Will go back to prior metoprolol per her request Start lisinopril 5mg daily. BPM in 1 wk. 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 Normal pacemaker function. No arrhythmias noted. Contact patient please and have her send manual remote today she is scheduled for 03.20.23. Pt calling C/O increased palpitations since change of Toprol to coreg on 02/17/23 Initially took one week to adjust to coreg had low Bps no recordings I have never had so many palpations my heart is going crazy Pt reports Bps 130-150's/80's daily she only wrote one down today's 153/91 before med She has 6.25 mg tablets She is taking 1.5 tablets in am self taking 0.5 tablet noon and 1.5 table in evening But this increase has not helped with palpitations or BP per pt Pt wants Toprol back and a different BP med Also wants to send remote today instead of Thursday Pt calling in today with complaints of palpitations. Pt states that she has been on the carvedilol for about 3 weeks. States she did okay at first but about a week in started having symptoms. Pt states he is awakened with her heart going nuts. documented in this encounter [facility] 09-12-2022 Miscellaneous Notes Formattin g of this note might be different from the original. PC to pt---agreeable to appt. 11/17 at 1:30. She will bring her BP cuff. Can we schedule her sooner with Dr. Bullock or myself in office? Advise her to bring in her BP cuff as well. Alternatively, she could also see her PCP for BP check as well . Pt calling in today stating she is still having some elevated BP's. Pt states she was seen for testing yesterday and BP was all over the place . Pt reports even when at home BP fluctuate between 115 and 180s. Lightheadedness Onset in July after shoulder surgery Called today because of elevated BP (progressive in nautre) No CP or trouble breathing. Mild TYSON. No stroke like symptoms. Taking Metoprolol 50mg BID, with an additional half tablet at noon (started this back in July too). Add amlodipine 5mg daily. Discussed signs and symptoms of hypertensive urgency/emergency and when to see 911/ER care. She will call if no improvement over the next 3-7days. Pacemaker remote received with normal device function and no events and pt notifed. Spoke with pt C/O increasing fatigue since shoulder surgery July 2022, also C/O intermittent lightheaded, weakness in legs No SOB no CP BP usually 150's/80's for past week SBP 180's HR 70-90's She is unsure if she is having any Afib She is concerned about elevated BP but has been eating olives and salty food she will watch Takes Toprol 50 mg BID she self taking extra 50 mg tablet at noon to help this BP Last device check 08/13 She will send today Last seen 12/2021 Pt calling today reporting elevated BP 188/86 HR's in the 70's to 90's. Pt complains of dizziness/lightheaded. No SOB. Generally does not feel the best. documented in this encounter [facility] 08-06-2022 Note Discharge Instructions Thank you for allowing [facility] to assist you with your healthcare needs. The following is important discharge information regarding your hospital visit. Your Care Team DARIO BOBO DO Your Diagnosis Status post reverse arthroplasty of right shoulder, Status post reverse total replacement of right shoulder Atrial fibrillation Hypertension goal BP (blood pressure) < 150/90 GERD (gastroesophageal reflux disease) Anxiety What to do next Scheduled Follow-Up Appointments Appointment Type When Where Contact InformationPT Outpatient Evaluation 08/18/2022 03:00 PM EDT [facility] [phone] Follow Up Appointments Follow Up with [facility] When 08/18/2022 03:00 PM EDT Why: This is your first physical therapy appointment. Follow-up as scheduled. Where: [address] [place] [address] [phone] Follow Up with ESAU TAYLOR PA-C, Orthopedic When 08/18/2022 01:45 PM EDT Why: This is your post-op appointment. Follow-up as scheduled. Where: [facility] [address] [place], [place] [id number]- The Following Activity and Diet Have Been Ordered for You NO RESTRICTIONS Allergies CeleBREX (GI Irritation) Contrast dye (Rash) Darvon Indocin (GI Irritation) Mobic (GI Irritation) Norflex (Extreme fatigue) PriLOSEC gabapentin morphine (Severe Constipation/Decreased GI motility) oxybutynin (Palpitations) Medications Please ask your primary doctor or pharmacist before taking any other medication not listed, including over the counter drugs, herbal medications, vitamins and or supplements as they may interact with your home medications. What How Much When Why Instructions Last Dose New acetaminophen (acetaminophen 500 mg oral tablet) 2 tab(s) by mouth Three (3) times a day as needed for as needed for pain not to exceed 3000 mg/ day Pickup at [facility] #[id number] 08/06 9am New docusate-senna (Senokot S 50 mg-8.6 mg oral tablet) 2 tab(s) by mouth Two (2) times a day Duration: 3 Days Take until first bowel movement, then as needed Pickup at [facility] #[id number] 08/06 9am New famotidine (Pepcid 20 mg oral tablet) 1 tab(s) by mouth Once a day Duration: 14 Days Pickup at [facility] #[id number] 08/06 9am New oxyCODONE (oxyCODONE 5 mg oral tablet ( IMMEDIATE release )) See instructions Status post reverse total replacement of right shoulder 1-2 tab(s) Oral q4h Pickup at [facility] #[id number] 08/06 5am Unchanged apixaban (Eliquis 5 mg oral tablet) 1 tab(s) by mouth Two (2) times a day 08/06 9am Unchanged herbal/ nutritional product 1 tab(s) by mouth Once a day Vitamin D, Vitamin C, and Zinc Supplement 08/06 9am Unchanged magnesium gluconate (magnesium gluconate 250 mg oral tablet) 1 tab(s) by mouth Every day Unsure of formulation of magnesium none given Unchanged metoprolol (Metoprolol Succinate ER 50 mg oral tablet, extended release) 1 tab(s) by mouth Two (2) times a day 08/06 9am Unchanged multivitamin with minerals (Vitamin C plus Zinc oral tablet, disintegrating) 1 tab(s) by mouth Once a day none given Unchanged pramipexole (Mirapex 0.5 mg oral tablet) 1 tab(s) by mouth Daily at bedtime Takes 1/ 2 of the tablet at 7 pm and 1/ 2 of the tablet at bedtime. 08/05 9pm Pharmacy Information [facility] #[id number]: [address], [place] [id number] [phone] What How Much When Comments Stop Taking traMADol (traMADol 50 mg oral tablet) 1 tab(s) by mouth Every 8 hours as needed for as needed for pain take 1 tablet by mouth every 8 hours Please take this list to your next doctor s visit. Bring all medications you take, including over the counter medications, herbals and other supplements with you to your doctor s visit. Patients and families are reminded to discard old lists and to update any records with all medication providers or retail pharmacies. Education Materials [facility] Post-operative Instructions PLEASE FOLLOW [facility] POST-OP INSTRUCTIONS GIVEN WATCH FOR SIGNS OF INFECTION: call the office ([phone]) if experencing any of the following: (Usually appears 36-48 hours after surgery) Increased temperature (101 degrees Fahrenheit or higher) Redness or swelling Increased uncontrolled pain Foul odor or drainage Calf discomfort Significant swelling Or if having any chest pain, shortness of breath, or difficulty breathing or swallowing call the office or go the nearest Emergency Room. If you have any questions, please call your doctor at the number listed on your follow up instructions. Form: 338A ([id number]) R: 08/31 Additional Information VACCINATE! IT SAVES LIVES! Members of the community who have not yet received the COVID-19 vaccine and would like to receive it can visit one of [facility] vaccine clinics. There are many vaccine clinic locations within the [facility]. For locations and available times, please visit [email or web address].o aro.gov/. It is important to note that some COVID mobile vaccine clinics are held outdoors and may be canceled in rainy or stormy conditions. To learn more about pediatric vaccinations (ages 5-11), we invite you to visit the [facility] webpage. [email or web address].[email or web address].org/p [email or web address]-Txcdq-Ahzuyofpjrn-Freq louokv-Rlmzz-Cnxtvhgtm.[email or web address] To learn more about the COVID-19 vaccine, we invite you to visit the CDC website for a list of frequently asked questions. https://www.cdc.gov/coronavirus/ 2019-ncov/vaccines/faq.html [facility] Patient [facility] Access Instructions: Stay connected with your healthcare team and access your personal medical information anytime with the [facility] Portal.If you would like a full copy of your medical records, please contact the [facility] Medical Records Department, Thursday through Thursday between 8a.m. and 4:30p.m. Please follow the directions below to access the portal: 1.Access the email account you provided upon registration to the hospital.2.Look for an invitation email from [facility].3.Open the email and access the invitation link: Accept Invitation to [facility].Fill in the required decker to create your account. Sign into [email or web address] with your username and password that you created in the above steps to stay up to date. You can then view a summary of results, a summary of your visits, and the ability to download your summaries to your computer or send the information securely to a physician. Remember that your healthcare information is confidential, so carefully consider who you will allow to register on the [facility] Portal for access to your information. You can also access the [facility] Patient Portal on the [employer] dayna. Simply click on Health Records under Health Data and then click on the [employer] logo. HOW TO SAFELY DISPOSE OF PRESCRIPTION MEDICATIONS Please use one of the following methods to safely dispose of your unused medications. 1.Use a drug disposal kit: the drug disposal pouch allows you to safely discard your old and unused drugs. Ask your nurse to give you one when you are discharged.2.Visit a local take-back location: Many local pharmacies and police departments have programs that collect old and unwanted prescription drugs. Call your local pharmacy or go to http://[employer]/8K3Ts3f to find one close to you.3.Make use of household items: Use cat litter or old coffee grounds to dispose medications if other options are not available. Mix your drugs with these household products, seal them in an airtight container and throw it into the garbage. Call [facility]: [phone] to be sure your drugs can be disposed of in this way. Some medicines may require a different approach.4.Never flush your medications down the toilet. IF YOU HAVE BEEN PRESCRIBED AN OPIOID FOR PAIN If you have been prescribed an opioid (such as hydrocodone, oxycodone or morphine), it is critical to understand the possible side effects and risks of opioid pain medications. Even when taken as directed, opioids can have several side effects including: Tolerance, meaning you might need to take more of a medication for the same pain relief. Nausea, vomiting and/or constipation. Sleepiness, dizziness, dry mouth, confusion, depression or itching. Physical dependence, meaning you have withdrawal symptoms when a medication is stopped, can develop within a few days. KNOW YOUR RESPONSIBILITIES It is important to know exactly how much and how often to take the opioid pain medications you are prescribed. Never take opioids in higher amounts or more often than prescribed. Do not combine opioids with alcohol or other drugs that cause drowsiness, such as benzodiazepines, also known as benzos, including diazepam and alprazolam, muscle relaxants or sleep aids. Never sell or share prescription opioids. This is illegal. Store opioids in a secure place and out of reach of others (including children, family, friends and visitors). The last page of this document has been signed and retained as a CHART COPY. Signatures Patient Education Materials Jagr[facility] Echevarria Post-op Instruction 11/2016 (30656) Medication Leaflets My discharge plan and instructions have been reviewed and explained to me and I,CALVIN, FABIENNE J understand my current condition and have read and understand these discharge instructions. I have received a written copy of the plan/instructions. If I have questions, I am aware that I should contact my doctor. 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 She states that she is doing well this morning and denies any new problems or concerns. She is starting to have pain in her right shoulder but feels that it is well controlled with the oral pain medications. She denies any fever, chills, cough, shortness of breath, chest pain, abdominal pain, nausea or dysuria. Reviewed labs and vital signs this morning. Patient is medically optimized for discharge home today. All questions answered. Objective Vitals and Measurements T: 36.3 C (Oral) TMIN: 36.2 C (Temporal Artery) TMAX: 36.6 C (Oral) HR: 75(Apical) RR: 20 BP: 117/72 SpO2: 92% HT: 155 cm WT: 77.3 kg BMI: 32.17 Intake and Output 7AM Yesterday to 7AM Today Intake and Output (Last 24 hours) Intake Administration Information 1400.00 Oral Intake 300.00 Output Intra-Op EBL 200.00 Urine Count 5.00 Total Summary Total Intake 1700.00 Total Output 200.00 Fluid Balance 1500.00 Physical Exam General: No acute distress. Patient is alert and appropriate. Skin: No rash. Skin is warm, dry and intact. HEENT: Head is normocephalic, atraumatic. Pupils are equal, round and reactive. Neck: Supple. No lymphadenopathy, thyromegaly. Lungs: Bilaterally clear but diminished without crepitation or wheeze. Unlabored. Heart: Heart is regular rhythm, S1, S2. No murmurs, gallops or rubs. Abdomen: Abdomen is soft, nontender. Bowels sounds present in all quadrants. Extremities: No clubbing, cyanosis, or edema. Peripheral pulses palpable. No calf tenderness. Right shoulder surgical dressing is dry and intact. Sling in place to right arm. Neurological: Patient is awake and alert to person, place and time. Following simple commands, moving all extremities. Weight Dosing Weight: 77.3 kg (08/05/22) Dosing Weight: 77.3 kg (08/05/22) Medications Medications (22) Active Scheduled: (12) acetaminophen 500 mg Tablet 1,000 mg 2 tab(s), Oral, q6hr apixaban 2.5 mg tablet 5 mg 2 tab(s), Oral, BID docusate sodium 100 mg Capsule 100 mg 1 cap(s), Oral, BID docusate-senna (Senokot S) 50 mg-8.6 mg Tablet 2 tab(s), Oral, BID famotidine 20 mg tablet 20 mg 1 tab(s), Oral, qDay magnesium hydroxide 8% Suspension 30 mL UD 30 mL, Oral, Daily metoprolol succinate 50 mg ER tablet 50 mg 1 tab(s), Oral, BID povidone iodine topical 17.5 mL, Topical (INT), PREOP pharm pramipexole 0.5 mg tablet 0.5 mg 1 tab(s), Oral, qHS ropivacaine 25 mg + epinephrine 0.3 mg + morphine 2.5 mg 25 mg 5 mL, Other, PREOP pharm ropivacaine 25 mg + epinephrine 0.3 mg + morphine 2.5 mg 25 mg 5 mL, Other, PREOP pharm tranexamic acid 2,000 mg 20 mL, Topical (INT), PREOP pharm Continuous: (2) Lactated Ringers 1,000 mL 1,000 mL, Intravenous, 100 mL/hr Lactated Ringers 1,000 mL 1,000 mL, Intravenous, 20 mL/hr PRN: (8) acetaminophen 325 mg Tablet 650 mg 2 tab(s), Oral, q4h morphine 2 mg/mL 1 mL syringe 2 mg 1 mL, IV Push, q5min ondansetron 2 mg/ 1 mL 2 mL INJ 4 mg 2 mL, IV Push, q8h ondansetron 2 mg/ 1 mL 2 mL INJ 4 mg 2 mL, IV Push, AsDirected oxycodone 5 mg tablet (immediate release) 5 mg 1 tab(s), Oral, q4h oxycodone 5 mg tablet (immediate release) 10 mg 2 tab(s), Oral, q4h prochlorperazine 10 mg/2 mL vial 5 mg 1 mL, IV Push, q6h sodium biphosphate-sodium phosphate 19 gm-7 gm Enema 133 mL, Rectal, qDay Lab Results 08/06 05:43 WBC: 14.6 H Hgb: 13.1 Hct: 38.6 Platelet: 166 Neutrophil %: 85.6 H Glucose Level: 107 Sodium Level: 142 Potassium Level: 3.9 BUN: 17 Creatinine Lvl (s): 0.79 Imaging Results and Diagnostics XR Shoulder Minimum 2 Views Right Result Date: August 05, 2022 Verified By: MADAY WASHBURN MD CLINICAL STATEMENT: IMPRESSION: Right shoulder arthroplasty with anatomic alignment. EKG No qualifying data available. Assessment/Plan 1. Status post reverse arthroplasty of right shoulder Acute, s/p right reverse arthroplasty today *Management per primary team. *Continue PO pain medication and antiemetics. 2. Atrial fibrillation Chronic, paroxysmal *Hold Eliquis tonight - resume today per surgical service. *Continue metoprolol at current dose. 3. Hypertension goal BP (blood pressure) < 150/90 Chronic, controlled *Continue current home antihypertensives. *SBP goal of 140 or less. 4. GERD (gastroesophageal reflux disease) Chronic *Continue Pepcid daily. 5. Anxiety Chronic *Continue current home medications. Patient examined in her room this morning. Labs and vital signs reviewed. Patient is medically optimized for discharge home today from hospitalist perspective. DVT prophylaxis with Apixaban 2.5 mg PO BID. Code status: Full Code. Labs, diagnostic test and progress notes reviewed as noted in HPI. Plan of care discussed with patient. All questions answered. Patient verbalizes understanding and is agreeable with plan of care. This case was discussed with collaborating physician, Dr. Cabrera Beauchamp. Time Spent 35 minutes Digitally Signed by MICHELLE BROOKE on 08/06/2022 11:20 AM [facility] 08-06-2022 Hospital Discharg e instructions Patient Education 08/06/2022 06:43:49 5 - [facility] Post-op Instruction 11/2016 ([id number]) [facility] Post-operative Instructions PLEASE FOLLOW [facility] POST-OP INSTRUCTIONS GIVEN WATCH FOR SIGNS OF INFECTION: call the office ([phone]) if experencing any of the following: (Usually appears 36-48 hours after surgery) Increased temperature (101 degrees Fahrenheit or higher) Redness or swelling Increased uncontrolled pain Foul odor or drainage Calf discomfort Significant swelling Or if having any chest pain, shortness of breath, or difficulty breathing or swallowing call the office or go the nearest Emergency Room. If you have any questions, please call your doctor at the number listed on your follow up instructions. Form: 338A ([id number]) R: 08/31 Follow Up Care 06/27/2022 15:26:16 With:ESAU TAYLOR PA-C, Orthopedic Address: [facility] [address] [place] [id number] When:08/18/2022 13:45:00 Comments:This is your post-op appointment. Follow-up as scheduled. With:[facility] Address: [address] [place] [phone] When:08/18/2022 15:00:00 Comments:This is your first physical therapy appointment. Follow-up as scheduled. [facility] 08-06-2022 Note Date of Service August 06, 2022 Subjective The patient was sitting in bed upon examination. Patient denies any chest pain, shortness of breath, dizziness, lightheadedness, nausea or vomiting, or calf pain. No adverse overnight events. Pain has been controlled on medications. Patient states the numbness and tingling is resolving in the right upper extremity. Her pain has been well controlled. She has no complaints this morning. Objective Vitals and Measurements T: 36.5 C (Oral) TMIN: 36.2 C (Temporal Artery) TMAX: 37.2 C (Temporal Artery) HR: 63 RR: 18 BP: 115/72 SpO2: 95% HT: 155 cm WT: 77.3 kg BMI: 32.17 Intake and Output 7AM Yesterday to 7AM Today Intake and Output (Last 24 hours) Intake Administration Information 1400.00 Oral Intake 300.00 Output Intra-Op EBL 200.00 Urine Count 5.00 Total Summary Total Intake 1700.00 Total Output 200.00 Fluid Balance 1500.00 Physical Exam Vital signs stable, afebrile. Patient had 1 reading of lower O2 saturation. Remainder have been within normal limits. She denies shortness of breath or chest pain. SCDs and PACO hose are in place bilaterally Dressing is clean dry and intact UltraSling fitting appropriately Sensation is intact to axillary, radial, median, and ulnar distribution Motor intact with patient able to make okay sign, cross fingers, and thumbs up Weight Dosing Weight: 77.3 kg (08/05/22) Dosing Weight: 77.3 kg (08/05/22) Medications Medications (24) Active Scheduled: (14) acetaminophen 500 mg Tablet 1,000 mg 2 tab(s), Oral, q6hr apixaban 2.5 mg tablet 5 mg 2 tab(s), Oral, BID bisacodyl 5 mg EC tablet 10 mg 2 tab(s), Oral, Once docusate sodium 100 mg Capsule 100 mg 1 cap(s), Oral, BID docusate-senna (Senokot S) 50 mg-8.6 mg Tablet 2 tab(s), Oral, BID famotidine 20 mg tablet 20 mg 1 tab(s), Oral, qDay magnesium hydroxide 8% Suspension 30 mL UD 30 mL, Oral, Daily metoprolol succinate 50 mg ER tablet 50 mg 1 tab(s), Oral, BID ondansetron 2 mg/ 1 mL 2 mL INJ 4 mg 2 mL, IV Push, q8h povidone iodine topical 17.5 mL, Topical (INT), PREOP pharm pramipexole 0.5 mg tablet 0.5 mg 1 tab(s), Oral, qHS ropivacaine 25 mg + epinephrine 0.3 mg + morphine 2.5 mg 25 mg 5 mL, Other, PREOP pharm ropivacaine 25 mg + epinephrine 0.3 mg + morphine 2.5 mg 25 mg 5 mL, Other, PREOP pharm tranexamic acid 2,000 mg 20 mL, Topical (INT), PREOP pharm Continuous: (2) Lactated Ringers 1,000 mL 1,000 mL, Intravenous, 100 mL/hr Lactated Ringers 1,000 mL 1,000 mL, Intravenous, 20 mL/hr PRN: (8) acetaminophen 325 mg Tablet 650 mg 2 tab(s), Oral, q4h morphine 2 mg/mL 1 mL syringe 2 mg 1 mL, IV Push, q5min ondansetron 2 mg/ 1 mL 2 mL INJ 4 mg 2 mL, IV Push, q8h ondansetron 2 mg/ 1 mL 2 mL INJ 4 mg 2 mL, IV Push, AsDirected oxycodone 5 mg tablet (immediate release) 5 mg 1 tab(s), Oral, q4h oxycodone 5 mg tablet (immediate release) 10 mg 2 tab(s), Oral, q4h prochlorperazine 10 mg/2 mL vial 5 mg 1 mL, IV Push, q6h sodium biphosphate-sodium phosphate 19 gm-7 gm Enema 133 mL, Rectal, qDay Lab Results 08/06 05:43 WBC: 14.6 H Hgb: 13.1 Hct: 38.6 Platelet: 166 Neutrophil %: 85.6 H Glucose Level: 107 Sodium Level: 142 Potassium Level: 3.9 BUN: 17 Creatinine Lvl (s): 0.79 EKG No qualifying data available. Assessment/Plan 1. Status post reverse arthroplasty of right shoulder 1. Status post right reverse total shoulder arthroplasty postop day #1 2. Continue pain medications: Tylenol and oxycodone 3. DVT prophylaxis: Patient has been resumed on her Eliquis 5 mg twice daily and which she takes for her atrial fibrillation. 4. Physical therapy: Continue with UltraSling at all times. Okay to take off sling for elbow range of motion and pendulum exercises 2-3 times daily. No range of motion of the operative shoulder. Will begin outpatient physical therapy after the 2-week follow-up at [facility] [place]. 5. H & H: 13.1/38.6, asymptomatic. Postoperative anemia secondary to acute blood loss from surgery without intraoperative complications. 6. Reactive leukocytosis: Currently 14.6, afebrile. Patient did receive Decadron intraoperatively 7. Encouraged incentive spirometry 8. Continue postoperative medical management per medicine 9. Disposition: Patient appears to be doing very well this morning. Plan will be for discharge home today as long as she tolerates therapy, pain is well controlled and medically stable. I am okay with patient going home after her therapy session in the morning as long as she is stable. She would like her prescriptions E scribed to [facility] in [facility]. She will follow-up per postop instructions. She has outpatient physical therapy established. She will contact her office upon discharge with any concerns or questions. I have reviewed the [place] Automated Rx Reporting System (OARRS) report for this patient for refill pattern and other prescriber involvement as part of the appropriate surveillance for the provision of acute and chronic controlled medications. The report was requested and reviewed on the date of this entry, and was considered in the prescribing process This dictation was created using voice recognition software. Phonetic and/or grammatical errors may exist. 2. Atrial fibrillation 3. Hypertension goal BP (blood pressure) < 150/90 4. GERD (gastroesophageal reflux disease) 5. Anxiety Orders: apixaban, Start: 08/06/22 9:00:00 EDT, Dose = 5 mg, = 2 tab(s), Oral, BID, Indication for Use Atrial fibrillation, 08/06/22 5:51:00 EDT Digitally Signed by ESAU TAYLOR PA-C on 08/06/2022 06:43 AM [facility] 08-06-2022 Note Date of Service August 06, 2022 Subjective The patient was sitting in bed upon examination. Patient denies any chest pain, shortness of breath, dizziness, lightheadedness, nausea or vomiting, or calf pain. No adverse overnight events. Pain has been controlled on medications. Patient states the numbness and tingling is resolving in the right upper extremity. Her pain has been well controlled. She has no complaints this morning. Objective Vitals and Measurements T: 36.5 C (Oral) TMIN: 36.2 C (Temporal Artery) TMAX: 37.2 C (Temporal Artery) HR: 63 RR: 18 BP: 115/72 SpO2: 95% HT: 155 cm WT: 77.3 kg BMI: 32.17 Intake and Output 7AM Yesterday to 7AM Today Intake and Output (Last 24 hours) Intake Administration Information 1400.00 Oral Intake 300.00 Output Intra-Op EBL 200.00 Urine Count 5.00 Total Summary Total Intake 1700.00 Total Output 200.00 Fluid Balance 1500.00 Physical Exam Vital signs stable, afebrile. Patient had 1 reading of lower O2 saturation. Remainder have been within normal limits. She denies shortness of breath or chest pain. SCDs and PACO hose are in place bilaterally Dressing is clean dry and intact UltraSling fitting appropriately Sensation is intact to axillary, radial, median, and ulnar distribution Motor intact with patient able to make okay sign, cross fingers, and thumbs up Weight Dosing Weight: 77.3 kg (08/05/22) Dosing Weight: 77.3 kg (08/05/22) Medications Medications (24) Active Scheduled: (14) acetaminophen 500 mg Tablet 1,000 mg 2 tab(s), Oral, q6hr apixaban 2.5 mg tablet 5 mg 2 tab(s), Oral, BID bisacodyl 5 mg EC tablet 10 mg 2 tab(s), Oral, Once docusate sodium 100 mg Capsule 100 mg 1 cap(s), Oral, BID docusate-senna (Senokot S) 50 mg-8.6 mg Tablet 2 tab(s), Oral, BID famotidine 20 mg tablet 20 mg 1 tab(s), Oral, qDay magnesium hydroxide 8% Suspension 30 mL UD 30 mL, Oral, Daily metoprolol succinate 50 mg ER tablet 50 mg 1 tab(s), Oral, BID ondansetron 2 mg/ 1 mL 2 mL INJ 4 mg 2 mL, IV Push, q8h povidone iodine topical 17.5 mL, Topical (INT), PREOP pharm pramipexole 0.5 mg tablet 0.5 mg 1 tab(s), Oral, qHS ropivacaine 25 mg + epinephrine 0.3 mg + morphine 2.5 mg 25 mg 5 mL, Other, PREOP pharm ropivacaine 25 mg + epinephrine 0.3 mg + morphine 2.5 mg 25 mg 5 mL, Other, PREOP pharm tranexamic acid 2,000 mg 20 mL, Topical (INT), PREOP pharm Continuous: (2) Lactated Ringers 1,000 mL 1,000 mL, Intravenous, 100 mL/hr Lactated Ringers 1,000 mL 1,000 mL, Intravenous, 20 mL/hr PRN: (8) acetaminophen 325 mg Tablet 650 mg 2 tab(s), Oral, q4h morphine 2 mg/mL 1 mL syringe 2 mg 1 mL, IV Push, q5min ondansetron 2 mg/ 1 mL 2 mL INJ 4 mg 2 mL, IV Push, q8h ondansetron 2 mg/ 1 mL 2 mL INJ 4 mg 2 mL, IV Push, AsDirected oxycodone 5 mg tablet (immediate release) 5 mg 1 tab(s), Oral, q4h oxycodone 5 mg tablet (immediate release) 10 mg 2 tab(s), Oral, q4h prochlorperazine 10 mg/2 mL vial 5 mg 1 mL, IV Push, q6h sodium biphosphate-sodium phosphate 19 gm-7 gm Enema 133 mL, Rectal, qDay Lab Results 08/06 05:43 WBC: 14.6 H Hgb: 13.1 Hct: 38.6 Platelet: 166 Neutrophil %: 85.6 H Glucose Level: 107 Sodium Level: 142 Potassium Level: 3.9 BUN: 17 Creatinine Lvl (s): 0.79 EKG No qualifying data available. Assessment/Plan 1. Status post reverse arthroplasty of right shoulder 1. Status post right reverse total shoulder arthroplasty postop day #1 2. Continue pain medications: Tylenol and oxycodone 3. DVT prophylaxis: Patient has been resumed on her Eliquis 5 mg twice daily and which she takes for her atrial fibrillation. 4. Physical therapy: Continue with UltraSling at all times. Okay to take off sling for elbow range of motion and pendulum exercises 2-3 times daily. No range of motion of the operative shoulder. Will begin outpatient physical therapy after the 2-week follow-up at [facility] [place]. 5. H & H: 13.1/38.6, asymptomatic. Postoperative anemia secondary to acute blood loss from surgery without intraoperative complications. 6. Reactive leukocytosis: Currently 14.6, afebrile. Patient did receive Decadron intraoperatively 7. Encouraged incentive spirometry 8. Continue postoperative medical management per medicine 9. Disposition: Patient appears to be doing very well this morning. Plan will be for discharge home today as long as she tolerates therapy, pain is well controlled and medically stable. I am okay with patient going home after her therapy session in the morning as long as she is stable. She would like her prescriptions E scribed to [facility] in [facility]. She will follow-up per postop instructions. She has outpatient physical therapy established. She will contact her office upon discharge with any concerns or questions. I have reviewed the [place] Automated Rx Reporting System (OARRS) report for this patient for refill pattern and other prescriber involvement as part of the appropriate surveillance for the provision of acute and chronic controlled medications. The report was requested and reviewed on the date of this entry, and was considered in the prescribing process This dictation was created using voice recognition software. Phonetic and/or grammatical errors may exist. 2. Atrial fibrillation 3. Hypertension goal BP (blood pressure) < 150/90 4. GERD (gastroesophageal reflux disease) 5. Anxiety Orders: apixaban, Start: 08/06/22 9:00:00 EDT, Dose = 5 mg, = 2 tab(s), Oral, BID, Indication for Use Atrial fibrillation, 08/06/22 5:51:00 EDT Digitally Signed by ESAU TAYLOR PA-C on 08/06/2022 06:43 AM [facility] 08-05-2022 Note ORIGINAL EXAMINATION: TWO XRAY VIEWS OF THE RIGHT SHOULDER08/05/2022 12:45 pm TECHNIQUE: Two views of the right shoulder COMPARISON: CT right shoulder 03/07/2022 HISTORY: ORDERING SYSTEM PROVIDED HISTORY: Reason for Exam: Status Post Arthroplasty FINDINGS: Status post right shoulder arthroplasty with anatomic alignment. Expected postoperative subcutaneous edema and emphysema is present. The acromioclavicular and coracoclavicular joints are intact. The included thoracic structures are normal. IMPRESSION: Right shoulder arthroplasty with anatomic alignment. Interpreted by: Maday Washburn MD Preliminary Report By: Maday Washburn MD Electronically signed By Maday Washburn MD Dictated Date: 08/05/2022 1:05:22 PM Prelim Date: 08/05/2022 1:06:56 PM Sign Date: 08/05/2022 1:06:56 PM Ordering Provider: FLAQUITA BAUTISTA [facility] 08-05-2022 Note ORIGINAL EXAMINATION: TWO XRAY VIEWS OF THE RIGHT SHOULDER08/05/2022 12:45 pm TECHNIQUE: Two views of the right shoulder COMPARISON: CT right shoulder 03/07/2022 HISTORY: ORDERING SYSTEM PROVIDED HISTORY: Reason for Exam: Status Post Arthroplasty FINDINGS: Status post right shoulder arthroplasty with anatomic alignment. Expected postoperative subcutaneous edema and emphysema is present. The acromioclavicular and coracoclavicular joints are intact. The included thoracic structures are normal. IMPRESSION: Right shoulder arthroplasty with anatomic alignment. Interpreted by: Maday Washburn MD Preliminary Report By: Maday Washburn MD Electronically signed By Maday Washburn MD Dictated Date: 08/05/2022 1:05:22 PM Prelim Date: 08/05/2022 1:06:56 PM Sign Date: 08/05/2022 1:06:56 PM Ordering Provider: [facility] 08-05-2022 Anesthesiology Consult note Patient: FABIENNE CHU Age: 82 years Sex: Female : 1940 Associated Diagnoses: None Author: JOEY SMITH APRN-DIRECTOR EDUCATION Preoperative Information Time of last food or liquid consumption: 08/05/2022 00:00:00 Anesthesia history Patient's history: negative. Family's history: negative. Review of Systems Ear/Nose/Mouth/Throat: Negative. Respiratory: Negative. Cardiovascular: pacer, htn. Gastrointestinal: Reflux, obese. Genitourinary: ckd stage3. Endocrine: Negative. Musculoskeletal: OA. Integumentary: Negative. Neurologic: anxiety. Health Status Allergies: Allergic Reactions (Selected) Severity Not Documented CeleBREX- Gi irritation. Contrast dye- Rash. Darvon- No reactions were documented. Gabapentin- No reactions were documented. Indocin- Gi irritation. Mobic- Gi irritation. Morphine- Severe constipation/decreased gi motility. Norflex- Extreme fatigue. Oxybutynin- Palpitations. PriLOSEC- No reactions were documented., Allergies (10) ActiveReaction CeleBREXGI Irritation Contrast dyeRash DarvonNone Documented gabapentinNone Documented IndocinGI Irritation MobicGI Irritation morphineSevere Constipation/Decreased GI motility NorflexExtreme fatigue oxybutyninPalpitations PriLOSECNone Documented Current medications: (Selected) Inpatient Medications Ordered Betadine 10% topical solution: 17.5 mL, mL/hr, Topical (INT), PREOP pharm Cyklokapron IVPB: 2,000 mg, 20 mL, 0 mL/hr, Topical (INT), PREOP pharm LR 1,000 mL: 20 mL/hr, Intravenous, Stop: 08/05/22 23:59:00 EDT LR 1000 mL: 20 mL/hr, Intravenous Naropin 25 mg + EPINEPHrine 1 mg/mL injectable solution 0.3 mg + morphine 2.5 m mg, 5 mL, 0 mL/hr, Other, PREOP pharm Naropin 25 mg + EPINEPHrine 1 mg/mL injectable solution 0.3 mg + morphine 2.5 m mg, 5 mL, 0 mL/hr, Other, PREOP pharm Zofran ( PACU ): 4 mg, 2 mL, IV Push, AsDirected, PRN: Nausea/Vomiting morphine ( PACU ): 2 mg, 1 mL, IV Push, q5min, PRN: Pain, scale 4-6 Prescriptions Prescribed Mirapex 0.5 mg oral tablet: 1 mg, 2 tab(s), Oral, qHS, for 60 day(s), Patient takes 0.5 tab at 7 pm and then 0.5 tab at bedtime, 120 tab(s), 0 Refill(s) Documented Medications Documented Eliquis 5 mg oral tablet: 5 mg, 1 tab(s), Oral, BID, 0 Refill(s) Metoprolol Succinate ER 50 mg oral tablet, extended release: 50 mg, 1 tab(s), Oral, BID, 0 Refill(s) Vitamin C plus Zinc oral tablet, disintegratin tab(s), Oral, qDay Vitamin D3: 1 tab(s), Oral, qDay, Unsure of dose magnesium gluconate 250 mg oral tablet: 250 mg, 1 tab(s), Oral, Daily, 30 tab(s), 0 Refill(s) traMADol 50 mg oral tablet: 50 mg, 1 tab(s), Oral, q8h, take 1 tablet by mouth every 8 hours, PRN: as needed for pain, Medications (8) Active Scheduled: (4) povidone iodine topical 17.5 mL, Topical (INT), PREOP pharm ropivacaine 25 mg + epinephrine 0.3 mg + morphine 2.5 mg 25 mg 5 mL, Other, PREOP pharm ropivacaine 25 mg + epinephrine 0.3 mg + morphine 2.5 mg 25 mg 5 mL, Other, PREOP pharm tranexamic acid 2,000 mg 20 mL, Topical (INT), PREOP pharm Continuous: (2) Lactated Ringers 1,000 mL 1,000 mL, Intravenous, 20 mL/hr Lactated Ringers Infusion 1000 mL 1,000 mL, Intravenous, 20 mL/hr PRN: (2) morphine 2 mg/mL 1 mL syringe 2 mg 1 mL, IV Push, q5min ondansetron 2 mg/ 1 mL 2 mL INJ 4 mg 2 mL, IV Push, AsDirected Problem list: Medical Abdominal aortic atherosclerosis / SNOMED CT 255983309 / Confirmed Abdominal bloating / SNOMED CT 948823048 / Confirmed Abdominal pain in female / SNOMED CT 53575602 / Confirmed Anxiety / SNOMED CT 30056662 / Confirmed Weakness / SNOMED CT 97734194 / Confirmed Atrial fibrillation / SNOMED CT 97822441 / Confirmed Splenic calcification / SNOMED CT 5202809889 / Confirmed Pacemaker / SNOMED CT 3976715197 / Confirmed Chronic kidney disease, stage 3a / SNOMED CT 5387577175 / Confirmed [place]dalek hernia / SNOMED CT 1848668188 / Confirmed Cough / SNOMED CT 59548547 / Confirmed Diverticulosis of colon / SNOMED CT 2205752465 / Confirmed GERD (gastroesophageal reflux disease) / SNOMED CT 768122879 / Confirmed Granulomatous disease / SNOMED CT 813684943 / Confirmed Hemangioma of spleen / SNOMED CT 976197769 / Confirmed Hematoma of abdominal wall / SNOMED CT 0920740408 / Confirmed Hiatal hernia / SNOMED CT 274474211 / Confirmed Hypertension goal BP (blood pressure) < 150/90 / SNOMED CT 2427336897 / Confirmed Urinary frequency / SNOMED CT 473914155 / Confirmed Leukocytosis / SNOMED CT 823576514 / Confirmed Liver cyst / SNOMED CT 352414229 / Confirmed Pancreatic mass / SNOMED CT 4178608408 / Confirmed 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 / SNOMED CT 333675948 / Confirmed Screening for breast cancer / SNOMED CT 365568130 / Confirmed Screening for osteoporosis / SNOMED CT 990074805 / Confirmed Respiratory crackles at right lung base / SNOMED CT 513321273 / Confirmed Restless leg / SNOMED CT 32328021 / Confirmed Rosacea / SNOMED CT 8694404701 / Confirmed 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 / Confirmed Umbilical hernia / SNOMED CT 8330625115 / Confirmed, Active Problems (34) Abdominal aortic atherosclerosis Abdominal bloating Abdominal pain in female Abnormality of pancreatic duct Anxiety Atrial fibrillation Bochdalek hernia Chronic kidney disease, stage 3a Cough Diverticulosis of colon GERD (gastroesophageal reflux disease) Granulomatous disease Heart block Hemangioma of spleen Hematoma of abdominal wall Hiatal hernia Hypertension goal BP (blood pressure) < 150/90 Leukocytosis Liver cyst Lumbar pain 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 Family History: Blood clot Mother () Diabetes mellitus type 1 Sister (Neva, ) Diabetes mellitus type 2 Sister (Liliana, ) Brother (ADOLPH, ) Stroke Brother (ADOLPH, ) Heart attack Brother (mahendra, ) Coronary artery disease Sister (Neva, ) Brother (hunter, ) Sister (Liliana, ) Procedure history: Reverse prosthetic total arthroplasty of left shoulder ([id number]) on 10/05/2018 at 78 Years. Fluoroscopy guided cardiac pacemaker procedure ([id number]) in 2014 at 74 Years. Comments: 09/22/2018 16:09 Nika Marquez RN 2006 H/O: hysterectomy ([id number]). Esophagogastroduodenoscopy ([id number]). Carpal tunnel release ([id number]). Comments: 09/22/2018 16:08 Nika Marquez RN Bilateral Arthroscopy of knee ([id number]). Comments: 09/22/2018 16:08 Nika Marquez RN Left Joint of toe ([id number]). Eye ([id number]). 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 Physical Examination Vital Signs 08/05/2022 11:05 EDT Heart Rate Monitored 91 bpm bpm Respiratory Rate - Anes 10 br/min br/min Systolic Blood Pressure Non-Invasive 102 mmHg mmHg Diastolic Blood Pressure Non-Invasive 62 mmHg mmHg 08/05/2022 11:00 EDT Heart Rate Monitored 86 bpm bpm Respiratory Rate - Anes 10 br/min br/min Systolic Blood Pressure Non-Invasive 82 mmHg mmHg Diastolic Blood Pressure Non-Invasive 50 mmHg mmHg 08/05/2022 10:57 EDT Systolic Blood Pressure Non-Invasive 82 mmHg mmHg Diastolic Blood Pressure Non-Invasive 49 mmHg mmHg 08/05/2022 10:55 EDT Heart Rate Monitored 74 bpm bpm Respiratory Rate - Anes 10 br/min br/min Systolic Blood Pressure Non-Invasive 73 mmHg mmHg Diastolic Blood Pressure Non-Invasive 48 mmHg mmHg 08/05/2022 10:52 EDT Systolic Blood Pressure Non-Invasive 67 mmHg mmHg Diastolic Blood Pressure Non-Invasive 38 mmHg mmHg 08/05/2022 10:50 EDT Heart Rate Monitored 73 bpm bpm Respiratory Rate - Anes 10 br/min br/min Systolic Blood Pressure Non-Invasive 68 mmHg mmHg Diastolic Blood Pressure Non-Invasive 43 mmHg mmHg 08/05/2022 10:45 EDT Heart Rate Monitored 74 bpm bpm Respiratory Rate - Anes 3 br/min br/min 08/05/2022 10:43 EDT Systolic Blood Pressure Non-Invasive 145 mmHg mmHg Diastolic Blood Pressure Non-Invasive 112 mmHg mmHg 08/05/2022 10:40 EDT Heart Rate Monitored 70 bpm bpm Respiratory Rate - Anes 19 br/min br/min 08/05/2022 9:50 EDT Apical Heart Rate 62 bpm Respiratory Rate 16 br/min 08/05/2022 8:50 EDT Temperature Temporal Artery 37.2 DegC Apical Heart Rate 77 bpm Respiratory Rate 15 br/min Systolic Blood Pressure Non-Invasive 147 mmHg HI Diastolic Blood Pressure Non-Invasive 80 mmHg Vital Signs(last 24 hrs) Last Charted Heart Rate [id number] bpm (AUG 05 11:05) Resp Rate 16 br/min (AUG 05 09:50) [id number] mmHg (AUG 05 11:05) DBP62 mmHg (AUG 05 11:05) Measurements from flowsheet : Measurements 08/05/2022 8:50 EDT Height 155 cm Height in inches 61 inch(es) Admission Weight 77.3 kg Weight Lbs 170.1 lb Weight Method Stated [place] Body Weight 47.85 kg Admission Body Mass Index 32.17 m2 Pain assessment: Pain Assessment 08/05/2022 8:50 EDT Primary Pain Location Shoulder Primary Pain Laterality Right Primary Pain Intensity 6 Primary Pain Quality Aching, Sharp Primary Pain Nonverbal Response Appears restful Pain Scale Type 0-10 Pain scale . General: Alert and oriented. Airway: Normal temporomandibular joint mobility. Mallampati classification: II (soft palate, fauces, uvula visible). Head: Normocephalic. Dentition Evaluation: Own teeth. Neck: Supple. Respiratory: Lungs are clear to auscultation. Cardiovascular: pacer. Heart Sounds: Normal. Gastrointestinal: Soft. Musculoskeletal Normal range of motion. Integumentary: Intact. Neurologic: Alert, Oriented. Review / Management Results review: No qualifying data available , Lab results 08/05/2022 11:10 EDT SN - Implant - Implant/Explant Implant SN - Implant - Implant/Explant Implant SN - Implant - Implant/Explant Implant SN - Implant - Implant/Explant Implant 08/05/2022 11:05 EDT Heart Rate Monitored 91 bpm bpm Respiratory Rate - Anes 10 br/min br/min Systolic Blood Pressure Non-Invasive 102 mmHg mmHg Diastolic Blood Pressure Non-Invasive 62 mmHg mmHg Oxygen Saturation 97 % % phenylephrine 100 mcg mcg Set Rate Anes 10 br/min br/min 08/05/2022 11:04 EDT dexAMETHasone 10 mg mg dexAMETHasone 10 mg mg ondansetron 4 mg mg 08/05/2022 11:03 EDT SN - CTm - Surgery Start 08/05/2022 10:59 08/05/2022 11:01 EDT ePHEDrine 10 mg mg 08/05/2022 11:00 EDT Heart Rate Monitored 86 bpm bpm Respiratory Rate - Anes 10 br/min br/min Systolic Blood Pressure Non-Invasive 82 mmHg mmHg Diastolic Blood Pressure Non-Invasive 50 mmHg mmHg Oxygen Saturation 97.1 % % Set Rate Anes 10 br/min br/min 08/05/2022 10:57 EDT Systolic Blood Pressure Non-Invasive 82 mmHg mmHg Diastolic Blood Pressure Non-Invasive 49 mmHg mmHg 08/05/2022 10:55 EDT Heart Rate Monitored 74 bpm bpm Respiratory Rate - Anes 10 br/min br/min Systolic Blood Pressure Non-Invasive 73 mmHg mmHg Diastolic Blood Pressure Non-Invasive 48 mmHg mmHg Oxygen Saturation 99.4 % % Set Rate Anes 10 br/min br/min 08/05/2022 10:54 EDT ePHEDrine 10 mg mg 08/05/2022 10:52 EDT Systolic Blood Pressure Non-Invasive 67 mmHg mmHg Diastolic Blood Pressure Non-Invasive 38 mmHg mmHg 08/05/2022 10:50 EDT Heart Rate Monitored 73 bpm bpm Respiratory Rate - Anes 10 br/min br/min Systolic Blood Pressure Non-Invasive 68 mmHg mmHg Diastolic Blood Pressure Non-Invasive 43 mmHg mmHg Oxygen Saturation 100 % % Set Rate Anes 10 br/min br/min 08/05/2022 10:45 EDT Heart Rate Monitored 74 bpm bpm Respiratory Rate - Anes 3 br/min br/min Oxygen Saturation 99.8 % % Set Rate Anes 10 br/min br/min 08/05/2022 10:43 EDT Systolic Blood Pressure Non-Invasive 145 mmHg mmHg Diastolic Blood Pressure Non-Invasive 112 mmHg mmHg 08/05/2022 10:40 EDT Heart Rate Monitored 70 bpm bpm Respiratory Rate - Anes 19 br/min br/min Oxygen Saturation 91.5 % % 08/05/2022 10:39 EDT SN - Irl - Irrigant Normal Saline SN - Irl - Irrigant Sterile Water SN - Irl - Irrigant Normal Saline SN - IrI - Volume In 500 mL SN - IrI - Volume In 450 mL SN - IrI - Volume In 3,000 mL SN - Irl - Additive BETADINE (POVIDONE IODINE) SOLUT SN - Irl - Additive IRRIGATION CHG 0.05% IRRISEPT 12/CA [id number] SN - IrI - Volume Out 500 mL SN - IrI - Volume Out 450 mL SN - IrI - Volume Out 3,000 mL 08/05/2022 10:29 EDT lidocaine 80 mg mg propofol 150 mg mg rocuronium 35 mg mg 08/05/2022 10:24 EDT SN - CTm - Anesthesia Start Time Anesthesia Start vancomycin 1,250 mg mg Sodium Chloride 0.9% 250 mL mL 08/05/2022 10:19 EDT SN - Proc - Anesthesia Type General SN - Proc - Actual Procedure RIGHT REVERSE TOTAL SHOULDER ARTHROPLASTY 08/05/2022 10:19 EDT SN - Irl - Irrigant Sterile Water SN - IrI - Volume In 1,000 mL SN - IrI - Volume Out 1,000 mL 08/05/2022 10:19 EDT SN - SP - Prep Agents Chloraprep SN - SP - HR - Method N/A 08/05/2022 10:18 EDT SN - PP - Body Position Sitting up 08/05/2022 10:17 EDT SN - PTCare - Anti-thromboembolism Corrina Sequential Compression Device (SCD) 08/05/2022 10:16 EDT SN - Assess - LOC Alert, Awake SN - Assess - Orientation Oriented X 3 SN - Assess - Post-op Skin Integrity Intact/Dry 08/05/2022 10:16 EDT SN - NV - Dose 2,000 mg SN - NV - Route of Administration Other SN - NV - By (Single) SN - NV - By (Single) 08/05/2022 10:16 EDT SN - GCD - Post-operative Diagnosis PRIMARY OSTEOARTHRITIS, RIGHT SHOULDER SN - GCD - Case Level Level 4 08/05/2022 10:15 EDT SN - DRS - Site and Details RIGHT SHOULDER PROCEDURE SITE X1 08/05/2022 10:15 EDT SN - Cul - Culture Type No Specimen per Surgeon 08/05/2022 10:14 EDT SN - CAt - Case Attendee SN - CAt - Case Attendee SN - CAt - Role Performed Customer Development Representative 08/05/2022 10:13 EDT SN - CAt - Case Attendee SN - CAt - Case Attendee SN - CAt - Case Attendee SN - CAt - Case Attendee SN - CAt - Case Attendee SN - CAt - Case Attendee SN - CAt - Case Attendee SN - CAt - Case Attendee SN - CAt - Case Attendee SN - CAt - Case Attendee SN - CAt - Role Performed Primary Surgeon SN - CAt - Role Performed DIRECTOR EDUCATION SN - CAt - Role Performed Landscape Specialist 1 SN - CAt - Role Performed Scrub 1 SN - CAt - Role Performed Blockman 1 08/05/2022 10:05 EDT fentaNYL 50 mcg mcg 08/05/2022 9:50 EDT Apical Heart Rate 62 bpm Respiratory Rate 16 br/min Time Out Procedure Verified Time Out Procedure Site Verified Yes Time Out Procedure Site Marked Yes Time Out Correct Patient Position Yes Oxygen Therapy Nasal cannula 0L-6L Oxygen Saturation 98 % Oxygen Flow Rate 2 Consent Form Signed Yes Bedside Procedure Nerve Block Provider #1 Bedside Time Out JOEY SMITH APRN-DIRECTOR EDUCATION Provider #2 Bedside Time Out Nika Asif RN NPO Status Maintained, More than 8 hours Allergy Band on and Verified Yes Blood Band on and Verified No Patient ID Band on and Verified Yes Anesthesia Consent Signed Yes Blood Consent Signed Yes 08/05/2022 9:47 EDT citric acid-sodium citrate Not Done: Not Appropriate at this Time (Not Done) 08/05/2022 9:45 EDT Cardiac Rhythm 1:1 V Pacing with Capture 08/05/2022 9:38 EDT Consent Form Signed Yes History & Physical Update On Chart Yes Anesthesia Consent Signed Yes Blood Consent Signed Yes 08/05/2022 9:34 EDT SN - Preop - CTm Pt Ready for OR/Proced 08/05/2022 9:34 08/05/2022 9:31 EDT cefazolin 2 gram(s) gram(s) famotidine 20 mg mg Lactated Ringers Injection 1,000 mL mL Sodium Chloride 0.9% 100 mL mL 08/05/2022 9:17 EDT ABO/Rh Interp A POS Antibody Screen Gel Negative ABSC 08/05/2022 8:58 EDT Designated Person #1 We May Share PHI Katty Shira [phone] (Modified) Designated Person #2 We May Share PHI Designated Person #2 We May Share PHI (Modified) Infectious Disease Symptoms Patient states no symptoms Safety Brochure Information Reviewed Yes Russel Rendon Video Viewed No Teaching Evaluation Verbalizes/Nonverbally indicates understanding Admission Note-Nursing Same Day Patient History (Modified) 08/05/2022 8:50 EDT Height 155 cm Height in inches 61 inch(es) Admission Weight 77.3 kg Weight Lbs 170.1 lb Weight Method Stated [place] Body Weight 47.85 kg Admission Body Mass Index 32.17 m2 Temperature Temporal Artery 37.2 DegC Apical Heart Rate 77 bpm Respiratory Rate 15 br/min Systolic Blood Pressure Non-Invasive 147 mmHg HI Diastolic Blood Pressure Non-Invasive 80 mmHg Primary Pain Location Shoulder Primary Pain Laterality Right Primary Pain Intensity 6 Primary Pain Quality Aching, Sharp Primary Pain Nonverbal Response Appears restful Pain Scale Type 0-10 Pain scale Monitor Alarms On and Limits Checked Nail Bed Color Fel[place] Capillary Refill < 2 seconds Heart Sounds ICU S1S2 Heart Rhythm Regular Dorsalis Pedis Pulse, Left 2+ Normal Dorsalis Pedis Pulse, Right 2+ Normal Radial Pulse, Left 2+ Normal Radial Pulse, Right 2+ Normal Respirations Unlabored Respiratory Pattern Regular Breath Sounds Auscultated Anterior and posterior All Lobes Breath Sounds Clear Cough None Oxygen Therapy Room air Oxygen Saturation 96 % Abdomen Description Soft, Rounded Bowel Sounds All Quadrants Present Urinary Elimination Voiding, no difficulties All Extremity Description [place] Skin Temperature Warm Temperature All Extremities Warm Skin Description [place], Dry Skin Integrity Intact Skin Moisture General Dry IV Present Present Continuous IV Infusions LR Wrist Left 08/05/2022 20 gauge Peripheral IV Activity: Insert new site Peripheral IV Dressing Condition: Clean, Dry, Intact Peripheral IV Dressing Activity: Applied, Transparent dressing Peripheral IV Line Status/Patency: Continuous infusion, Good blood return Peripheral IV Site Condition: No complications Peripheral IV Equipment: Extension set, PRN Adaptor Peripheral IV Number of Attempts: 1 Neurological Symptoms Patient denies Extremity Movement Unequal Characteristics of Speech Clear Level of Consciousness Alert Tone All Extremities Normal Sensation All Extremities Intact Affect/Behavior Appropriate, Calm, Cooperative Orientation Oriented x 4 Allergies Yes Fur Buyer On Yes Patient Dressed In Hospital gown, No undergarments Pre-op Preparation Undergarments removed CHG Preoperative Wash/Wipe Night before procedure, Day of procedure, Site specific wipe Preop Nasal Swab Povidone-Iodine CHG Skin Prep Completed for Eligible Surgery History & Physical On Chart Yes MRSA/MSSA Protocol Yes Galen Motor (2) Moves 4 extremities voluntarily or on command Galen Respirations (2) Spontaneous respiration without support, RR > 10 Galen Blood Pressure (2) BP 20% above or below preanesthetic level Galen Pulse (2) Pulse 20% above or below preanesthetic level Galen Oxygen Saturation (2) 94% or more Galen Level of Consciousness (2) Fully awake Galen III Score 12 Belongings At Bedside Jacket, Pants, Shirt, Shoes, Socks, Undergarments Belongings Sent Home Purse Activity Status ADL Awake, Repositions self, Resting SCD On/Re-applied bilateral knee high NPO Status Maintained, More than 8 hours Standard Safety ID band on, Allergy Band on, Call device within reach, Bed in low position, Wheels locked, Upper/Half-Length side-rails up, Non-Slip footwear Demonstrates Correct Call Light Use Yes Allergy Band on and Verified Yes Patient ID Band on and Verified Yes Implants Verified Yes Pacemaker/AICD Verified Yes Last Fluid Intake 08/04/2022 18:30 Last Food Intake 08/04/2022 18:30 Last Void 08/05/2022 7:15 08/05/2022 8:47 EDT SN - Preop - CTm Pt in SDS Room 08/05/2022 8:45 . Assessment and Plan [place] [employer] Anesthesiologists (ASA) physical status classification: Class III. Anesthetic Preoperative Plan Premedication: intravenous. Anesthetic technique: General. Induction: intravenously. Maintenance airway: Oral endotracheal tube. Regional: Interscalene Block. Postoperative pain management: Per surgeon. Risks discussed: nausea, vomiting, sore throat. Informed consent: signed by patient. Digitally Signed by JOEY SMITH on 08/05/2022 11:14 AM [facility] 03-08-2022 Note Date of Service 03/08/2022 Chief Complaint LLQ abd pain tender to touch History of Present Illness 82-year-old female with past medical history significant for atrial fibrillation on anticoagulation, CKD, GERD, hypertension, anxiety RLS. Patient presented to [facility] emergency department on 03/07/2022 with left upper quadrant abdominal pain that started in the morning. Patient was concerned about a muscle strain. In the emergency department patient was afebrile and hemodynamically stable with adequate oxygen saturations on room air. Mild leukocytosis with white blood cell count of 12,000. Urinalysis negative for nitrates and leukocyte Estrace. CMP within normal limits. CT abdomen and pelvis demonstrates large left rectus abdominis intramuscular hematoma, diverticulosis without diverticulitis, mild pancreatic ductal dilation. Overnight patient remained hemodynamically stable. Pain levels have been 0-2. This morning hemoglobin is 12.6. It was 14.7 in the emergency department. CMP mostly unremarkable. On exam today, pt denies any fever or chills. No headache or dizziness. Denies chest pain, palpitations. No cough, dyspnea, sputum production. Denies N/V/D/C. No melena/hematochezia. No dysuria or hematuria. No new paresthesias. Patient denies any pain today. Review of Systems See HPI for specific ROS. All other systems reviewed and negative. Physical Exam Vitals and Measurements T: 36.7 C (Oral) TMIN: 36.3 C (Oral) TMAX: 36.7 C (Oral) HR: 74(Monitored) RR: 20 BP: 134/64 SpO2: 98% HT: 157.5 cm WT: 79.9 kg BMI: 31.52 Weight Dosing Weight: 79.9 kg (03/07/22) Dosing Weight: 78.2 kg (03/07/22) GEN: Appears chronically ill, well developed EYES: No conjunctival erythema, drainage. EOMI EARS: Hearing grossly intact. NOSE: No nasal discharge. THROAT: Oral cavity and pharynx pink and moist. CHEST: Normal S1 and S2. Rhythm is regular. Clear to auscultation, without rales, rhonchi, wheezing. ABD: Positive bowel sounds x 4 quads. Soft, nondistended, tender left upper quadrant with palpation EXT: No significant deformity or joint abnormality. No edema. Peripheral pulses intact. NEURO: Sensation grossly intact SKIN: Skin color normal PSYCH: The mental examination revealed the patient was alert and oriented x 4 Lab Results 03/08 12:24 Hgb: 12.4 Hct: 37.1 03/08 06:02 WBC: 10.9 H Hgb: 12.6 Hct: 36.5 L Platelet: 162 Neutrophil %: 89.3 H Glucose Level: 131 H Sodium Level: 136 Potassium Level: 4.4 BUN: 23 H Creatinine Lvl (s): 0.88 03/08 00:21 Hgb: 12.8 Hct: 37.2 03/07 14:35 WBC: 12.1 H Hgb: 14.7 Hct: 43.7 Platelet: 193 Neutrophil %: 80.8 H Glucose Level: 120 H Sodium Level: 136 Potassium Level: 4.0 BUN: 22 H Creatinine Lvl (s): 1.00 Imaging Results and Diagnostics CT Abd/Pelvis w/ IV Contrast Only Result Date: March 07, 2022 Verified By: QUENTIN HARRIS MD CLINICAL STATEMENT: IMPRESSION: Large left rectus abdominus intramuscular hematoma with findings suggestiveof intramuscular active extravasation. Marked colonic diverticulosis without diverticulitis. These findings were discussed with Dr. Iwona Monaco by Dr. Bledsoe at 16:05 on03/07/2022. Mild pancreatic ductal dilatation which can be correlated with nonemergentMRCP.. I have personally reviewed the images of this examination and agree with theresident's findings and interpretation. Assessment/Plan 1. Hematoma of abdominal wall 2. Atrial fibrillation 3. CKD (chronic kidney disease) Hematoma of abdominal wall hemoglobin dropped by 2 points from admission. Every 6 hour H&H's were checked. Hemoglobin has remained stable At 12. Patient has remained hemodynamically stable. Atrial fibrillation rate controlled. Continue metoprolol. Hold Eliquis. CKD at baseline DVT prophylaxis: SCDs Labs, diagnostics, and progress notes reviewed as noted in HPI Code Status: Full code Plan of care discussed with patient. All questions answered. Patient verbalizes understanding is agreeable to plan of care. This dictation was performed using voice recognition software and may include grammatical and/or spelling errors. Problem List/Past Medical History Ongoing Abdominal bloating Acute maxillary sinusitis Anxiety Atrial fibrillation CKD (chronic kidney disease) Cough Encounter for annual wellness exam in Medicare patient GERD (gastroesophageal reflux disease) Hematoma of abdominal wall HTN (hypertension) Pacemaker Restless leg Rosacea Screening for breast cancer Screening for osteoporosis Historical No qualifying data Procedure/Surgical History Reverse prosthetic total arthroplasty of left shoulder: 10/05/18 Shoulder replacement: 10/05/18 Fluoroscopy guided cardiac pacemaker procedure: 2014 Joint of toe Eye Carpal tunnel release Arthroscopy of knee Esophagogastroduodenoscopy Medications Home Medications (7) Active metoprolol succinate 50 mg oral TABLET extended release 50 mg = 1 tab(s), Oral, qAM Metoprolol Succinate ER 50 mg oral tablet, extended release 75 mg = 1.5 tab(s), Oral, qHS Mirapex 0.5 mg oral tablet 0.5 mg = 1 tab(s), Oral, qHS Vitamin B6 1 tab(s), Oral, qDay Vitamin C 1 tab(s), Oral, qDay Vitamin D3 1 tab(s), Oral, qDay Zinc 1 tab(s), Oral, qDay Allergies CeleBREX (GI Irritation) Contrast dye (Rash) Darvon Indocin (GI Irritation) Mobic (GI Irritation) Norflex (Extreme fatigue) PriLOSEC gabapentin morphine (Severe Constipation/Decreased GI motility) oxybutynin (Palpitations) Social History Smoking Status - 04/13/2017 Never smoker Alcohol Use: Current. 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 Her children check on her regularly.., 08/18/2019 Nutrition/Health Caffeine intake amount: 2 servings per day., 12/10/2018 Substance Abuse Use: Never., 09/22/2018 Tobacco Nicotine Use: Never (less than 100 in lifetime). Exposure to Tobacco Smoke Lives in non-smoking home., 04/08/2019 Family History Blood clot: Mother. Coronary artery disease: Sister, Sister and Brother. Diabetes mellitus type 1: Sister. Diabetes mellitus type 2: Sister and Brother. Heart attack: Brother. Stroke: Brother. Immunizations pneumococcal 13-valent conjugate vaccine: 0 unknown unit (02/02/15) pneumococcal 23-valent vaccine(Pneumovax: 0.5 mL (05/31/19) pneumococcal 23-valent vaccine(Pneumovax: 0 unknown unit (02/24/07) SARS-CoV-2 mRNA (tozinameran) vaccine: 0 unknown unit (07/20/20) SARS-CoV-2 mRNA (tozinameran) vaccine: 0 unknown unit (06/29/20) tetanus/diphth/pertuss (Tdap) adult/adol: 0.5 unknown unit (05/11/20) tetanus/diphth/pertuss (Tdap) adult/adol: 0 unknown unit (02/24/07) Code Status Code Status - Ordered -- 03/07/22 18:27:00 EST, Full Code, Constant Order Digitally Signed by TOMASZ LYNNE on 03/08/2022 03:33 PM [facility] 03-08-2022 Note Discharge Instructions Thank you for allowing [facility] to assist you with your healthcare needs. The following is important discharge information regarding your hospital visit. Your Care Team TOMASZ LYNNE APRN-ROSARIO Your Diagnosis Hematoma of abdominal wall Atrial fibrillation CKD (chronic kidney disease) Abdominal pain What to do next Instructions From Your Doctor Please stop taking your Eliquis until directed by your concrete layer. You will need to call your cardiology office on Thursday morning to secure an appointment to discuss when to resume Eliquis. The Following Activity and Diet Have Been Ordered for You Discharge Activity - Ordered -- Resume your pre-hospitalization activity, 03/08/22 14:37:00 EST Discharge Diet - Ordered -- No changes were made to your diet during your hospital stay. Please resume your pre hospitalization diet on discharge., 03/08/22 14:37:00 EST The Following Equipment Has Been Ordered for You No qualifying data available. The Following Treatments Have Been Ordered for You Discharge Labs No qualifying data available. Discharge Radiology No qualifying data available. Other Therapies No qualifying data available. Post Acute Orders No qualifying data available. Someone Will Contact You Regarding These Home Health Referrals No home referrals have been ordered for you. No one will call you. Allergies CeleBREX (GI Irritation) Contrast dye (Rash) Darvon Indocin (GI Irritation) Mobic (GI Irritation) Norflex (Extreme fatigue) PriLOSEC gabapentin morphine (Severe Constipation/Decreased GI motility) oxybutynin (Palpitations) Medications Please ask your primary doctor or pharmacist before taking any other medication not listed, including over the counter drugs, herbal medications, vitamins and or supplements as they may interact with your home medications. What How Much When Instructions Last Dose Changed cholecalciferol (Vitamin D3) 1 tab(s) by mouth Once a day Unsure of dose Changed pramipexole (Mirapex 0.5 mg oral tablet) 1 tab(s) by mouth Daily at bedtime Patient takes 0.5 tab at 7 pm and then 0.5 tab at bedtime Unchanged ascorbic acid (Vitamin C) 1 tab(s) by mouth Once a day Unsure of dose Unchanged metoprolol (metoprolol succinate 50 mg oral TABLET extended release) 1 tab(s) by mouth Once a day (in the morning) Unchanged metoprolol (Metoprolol Succinate ER 50 mg oral tablet, extended release) 1.5 tab(s) by mouth Daily at bedtime Unchanged pyridoxine (Vitamin B6) 1 tab(s) by mouth Once a day Unsure of dose Unchanged zinc sulfate (Zinc) 1 tab(s) by mouth Once a day Unsure of dose What How Much When Comments Stop Taking apixaban (Eliquis 5 mg oral tablet) 1 tab(s) by mouth Two (2) times a day Please take this list to your next doctor s visit. Bring all medications you take, including over the counter medications, herbals and other supplements with you to your doctor s visit. Patients and families are reminded to discard old lists and to update any records with all medication providers or retail pharmacies. Additional Information VACCINATE! IT SAVES LIVES! Members of the community who have not yet received the COVID-19 vaccine and would like to receive it can visit one of [facility] vaccine clinics. There are many vaccine clinic locations within the [facility]. For locations and available times, please visit [email or web address] It is important to note that some COVID mobile vaccine clinics are held outdoors and may be canceled in rainy or stormy conditions. To learn more about pediatric vaccinations (ages 5-11), we invite you to visit the [facility] webpage. [email or web address] [email or web address] [email or web address].[email or web address] To learn more about the COVID-19 vaccine, we invite you to visit the [facility] website for a list of frequently asked questions. [email or web address] [email or web address] Patient Portal Access Instructions: Stay connected with your healthcare team and access your personal medical information anytime with the [facility] Patient Portal.If you would like a full copy of your medical records, please contact the [facility] Medical Records Department, Thursday through Thursday between 8a.m. and 4:30p.m. Please follow the directions below to access the portal: 1.Access the email account you provided upon registration to the [facility].2.Look for an invitation email from [facility].3.Open the email and access the invitation link: Accept Invitation to [facility]4.Fill in the required decker to create your account. Sign into [email or web address] with your username and password that you created in the above steps to stay up to date. You can then view a summary of results, a summary of your visits, and the ability to download your summaries to your computer or send the information securely to a physician. Remember that your healthcare information is confidential, so carefully consider who you will allow to register on the [facility] Patient Portal for access to your information. You can also access the [facility] Patient Portal on the Executive Channel. Simply click on Health Records under [employer] and then click on the [employer] logo. HOW TO SAFELY DISPOSE OF PRESCRIPTION MEDICATIONS Please use one of the following methods to safely dispose of your unused medications. 1.Use a drug disposal kit: the drug disposal pouch allows you to safely discard your old and unused drugs. Ask your nurse to give you one when you are discharged.2.Visit a local take-back location: Many local pharmacies and police departments have programs that collect old and unwanted prescription drugs. Call your local pharmacy or go to http://[employer]/7Y4Ii0h to find one close to you.3.Make use of household items: Use cat litter or old coffee grounds to dispose medications if other options are not available. Mix your drugs with these household products, seal them in an airtight container and throw it into the garbage. Call [facility]: [phone] to be sure your drugs can be disposed of in this way. Some medicines may require a different approach.4.Never flush your medications down the toilet. IF YOU HAVE BEEN PRESCRIBED AN OPIOID FOR PAIN If you have been prescribed an opioid (such as hydrocodone, oxycodone or morphine), it is critical to understand the possible side effects and risks of opioid pain medications. Even when taken as directed, opioids can have several side effects including: Tolerance, meaning you might need to take more of a medication for the same pain relief. Nausea, vomiting and/or constipation. Sleepiness, dizziness, dry mouth, confusion, depression or itching. Physical dependence, meaning you have withdrawal symptoms when a medication is stopped, can develop within a few days. KNOW YOUR RESPONSIBILITIES It is important to know exactly how much and how often to take the opioid pain medications you are prescribed. Never take opioids in higher amounts or more often than prescribed. Do not combine opioids with alcohol or other drugs that cause drowsiness, such as benzodiazepines, also known as benzos, including diazepam and alprazolam, muscle relaxants or sleep aids. Never sell or share prescription opioids. This is illegal. Store opioids in a secure place and out of reach of others (including children, family, friends and visitors). The last page of this document has been signed and retained as a CHART COPY. Signatures Patient Education Materials Medication Leaflets My discharge plan and instructions have been reviewed and explained to me and ICALVIN ALICE J understand my current condition and have read and understand these discharge instructions. I have received a written copy of the plan/instructions. If I have questions, I am aware that I should contact my doctor. 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 Hematoma of abdominal wal l 2. Atrial fibrillation 3. CKD (chronic kidney disease) Hematoma of abdominal wall hemoglobin dropped by 2 points from admission. Every 6 hour H&H's were checked. Hemoglobin has remained stable At 12. Patient has remained hemodynamically stable. Atrial fibrillation rate controlled. Continue metoprolol. Hold Eliquis. CKD at baseline DVT prophylaxis: SCDs Labs, diagnostics, and progress notes reviewed as noted in HPI Code Status: Full code Plan of care discussed with patient. All questions answered. Patient verbalizes understanding is agreeable to plan of care. This dictation was performed using voice recognition software and may include grammatical and/or spelling errors. [facility] 11-11-2022 Note ORIGINAL EXAMINATION: CT OF THE ABDOMEN AND PELVIS WITH TWTEKWWU82/11/2022 3:54 pm TECHNIQUE: CT of the abdomen and pelvis was performed with the administration of intravenous contrast. Multiplanar reformatted images are provided for review. Automated exposure control, iterative reconstruction, and/or weight based adjustment of the mA/kV was utilized to reduce the radiation dose to as low as reasonably achievable. COMPARISON: CT abdomen/pelvis August 10, 2014 HISTORY: ORDERING SYSTEM PROVIDED HISTORY: Reason for Exam: pain. FINDINGS: Bilateral fat containing Bochdalek hernias. Bibasilar atelectasis. Pacemaker leads. The liver demonstrates a small cyst. The adrenal glands, and gallbladder are unremarkable. There are numerous hypodense splenic lesions which were also present previously and may represent hemangiomas. Splenic calcifications are again noted. There is a stable 6 mm pancreatic body hypodensity. No peripancreatic inflammation is seen. Mild pancreatic ductal dilatation. The kidneys appear to enhance symmetrically without obstructive uropathy. The ureters and bladder are unremarkable. Small hiatal hernia. Posterior bladder diverticulum. There is circumferential gastric wall thickening likely relating to under distension. Nondilated loops of small bowel. There is marked colonic diverticulosis without adjacent inflammation. The appendix is surgically absent. Prior hysterectomy. There are scattered phleboliths. No free gas. No lymphadenopathy. Atherosclerotic nonaneurysmal abdominal aorta and branching vasculature. There is a large left rectus abdominus intramuscular hematoma measuring 6.4 x 4.8 x 20.5 cm (AP x TRV x CC) with intramuscular active extravasation. There is a small amount of adjacent extraperitoneal fluid in the pelvis. There is dorsal spondylosis. Areas of canal stenosis are identified, suboptimally assessed by this method. There is a lipoma in the left hip musculature. Small fat containing umbilical hernia. No acute osseous abnormality. Right iliac bone sclerotic focus likely a bone island. IMPRESSION: Large left rectus abdominus intramuscular hematoma with findings suggestive of intramuscular active extravasation. Marked colonic diverticulosis without diverticulitis. These findings were discussed with Dr. Iwona Monaco by Dr. Bledsoe at 16:05 on 03/07/2022. Mild pancreatic ductal dilatation which can be correlated with nonemergent MRCP.. I have personally reviewed the images of this examination and agree with the resident's findings and interpretation. Interpreted by: Quentin Harris MD Preliminary Report By: Olga Bledsoe Electronically signed By Quentin Harris MD Dictated Date: 03/07/2022 4:00:49 PM Prelim Date: 03/07/2022 4:18:22 PM Sign Date: 03/07/2022 4:38:08 PM Ordering Provider: KIMBERLY MICHAELS [facility]11-11-2022 Note ORIGINAL EXAMINATION: CT OF THE ABDOMEN AND PELVIS WITH [id number]/11/2022 3:54 pm TECHNIQUE: CT of the abdomen and pelvis was performed with the administration of intravenous contrast. Multiplanar reformatted images are provided for review. Automated exposure control, iterative reconstruction, and/or weight based adjustment of the mA/kV was utilized to reduce the radiation dose to as low as reasonably achievable. COMPARISON: CT abdomen/pelvis August 10, 2014 HISTORY: ORDERING SYSTEM PROVIDED HISTORY: Reason for Exam: pain. FINDINGS: Bilateral fat containing Bochdalek hernias. Bibasilar atelectasis. Pacemaker leads. The liver demonstrates a small cyst. The adrenal glands, and gallbladder are unremarkable. There are numerous hypodense splenic lesions which were also present previously and may represent hemangiomas. Splenic calcifications are again noted. There is a stable 6 mm pancreatic body hypodensity. No peripancreatic inflammation is seen. Mild pancreatic ductal dilatation. The kidneys appear to enhance symmetrically without obstructive uropathy. The ureters and bladder are unremarkable. Small hiatal hernia. Posterior bladder diverticulum. There is circumferential gastric wall thickening likely relating to under distension. Nondilated loops of small bowel. There is marked colonic diverticulosis without adjacent inflammation. The appendix is surgically absent. Prior hysterectomy. There are scattered phleboliths. No free gas. No lymphadenopathy. Atherosclerotic nonaneurysmal abdominal aorta and branching vasculature. There is a large left rectus abdominus intramuscular hematoma measuring 6.4 x 4.8 x 20.5 cm (AP x TRV x CC) with intramuscular active extravasation. There is a small amount of adjacent extraperitoneal fluid in the pelvis. There is dorsal spondylosis. Areas of canal stenosis are identified, suboptimally assessed by this method. There is a lipoma in the left hip musculature. Small fat containing umbilical hernia. No acute osseous abnormality. Right iliac bone sclerotic focus likely a bone island. IMPRESSION: Large left rectus abdominus intramuscular hematoma with findings suggestive of intramuscular active extravasation. Marked colonic diverticulosis without diverticulitis. These findings were discussed with Dr. Iwona Monaco by Dr. Bledsoe at 16:05 on 03/07/2022. Mild pancreatic ductal dilatation which can be correlated with nonemergent MRCP.. I have personally reviewed the images of this examination and agree with the resident's findings and interpretation. Interpreted by: Quentin Harris MD Preliminary Report By: Olga Bledsoe Electronically signed By Quentin Harris MD Dictated Date: 03/07/2022 4:00:49 PM Prelim Date: 03/07/2022 4:18:22 PM Sign Date: 03/07/2022 4:38:08 PM Ordering Provider: [facility]LY [facility] + Plan note No data available for this section [facility] Evaluation + Plan note Future Appointments Appointment Date:04/18/2022 01:00:00 PM Scheduled Provider:DARIO BOBO DO Location:[facility] Appointment Type:PC OV Follow Up [facility] Evaluation + Plan note Future Appointments Appointment Date:07/15/2022 10:30:00 AM Scheduled Provider:DARIO BOBO DO Location:[facility] Appointment Type:PC OV Future Scheduled Tests Radiology* MRI MRCP 03/24/22 * US Renal 04/25/22 [facility] Evaluation + Plan note Future Appointments Appointment Date:07/15/2022 10:30:00 AM Scheduled Provider:DARIO BOBO DO Location:[facility] Appointment Type:PC OV Future Scheduled Tests Radiology* MRI MRCP 03/24/22 [facility] Evaluation + Plan note Future Appointments Appointment Date:08/18/2022 03:00:00 PM Scheduled Provider: Location:[facility] Appointment Type:PT Outpatient Evaluation Future Scheduled Tests Radiology* MRI MRCP 03/24/22 [facility] Evaluation + Plan note Future Appointments Appointment Date:08/18/2022 03:00:00 PM Scheduled Provider: Location:[facility] Appointment Type:PT Outpatient Evaluation [facility] Evaluation note* Diagnosis CHB (complete heart block) (CMS/HCC) (HCC)- Primary Atrioventricular block, complete Encounter for adjustment or management of cardiac device documented in this encounter [facility] note* Diagnosis Essential hypertension- Primary Unspecified essential hypertension Encounter for adjustment or management of cardiac device [facility] Diagnosis Essential hypertension- Primary Unspecified essential hypertension Encounter for adjustment or management of cardiac device [facility] Diagnosis Strain of calf muscle, left, initial encounter- Primary Pain of left calf Encounter for adjustment or management of cardiac device documented in this encounter [facility] note* Diagnosis Essential hypertension- Primary Unspecified essential hypertension Encounter for adjustment or management of cardiac device documented in this encounter [facility] note* Diagnosis Acute embolism and thrombosis of left tibial vein (HCC) Encounter for adjustment or management of cardiac device [facility] Discharge instructions No data available for this section [facility] Discharge instructions* Attachments The following attachments cannot be sent through Care Everywhere. * Lower Extremity Muscle Strain Discharge Instructions (Faroese) [facility] No data available for this section [facility] Reason for referral (narrative)* Consultation (Routine) - Pending Review Specialty Diagnoses / Procedures Referred By Prema mora Referred To Contact Sports Medicine Diagnoses Strain of calf muscle, left, initial encounter Procedures AL OFFICE/OUTPATIENT [facility] 60-74 MINUTES Deo Herman MD [address] [place] [address] [place] [address] Referral ID Status Reason Start Date Expiration Date Visits Requested Visits Authorized [id number] Pending Review Specialty Services Required 03/30/2023 03/29/2024 1 1 [facility] Summary Purpose Family History No Family History Records Found No data available for this section No Family History Records FoundNo Family History Records Found Advance Directives No Advanced Directives Records FoundNo Advanced Directives Records FoundNo Advanced Directives Records Found Reason for Referral Specialty Diagnoses / Procedures Referred By Contac t Referred To Contact Cardiology Diagnoses Acute embolism and thrombosis of left tibial vein (HCC) Procedures Vascular US lower extremity venous duplex left Delbert Saravia, PATI [address] [place] [phone] Referral ID Status Reason Start Date Expiration Date V isits Requested Visits Authorized [id number] Pending Review 04/07/2023 04/06/2024 1 1 Additional Source Comments INFORMATION SOURCE (unrecogn ized section and content) DATE CREATED AUTHOR AUTHOR'S ORGANIZ ATION 02/06/2023 [facility] ([place]) DATE CREATED AUTHOR AUTHOR'S ORGANIZ ATION 04/30/2023 [facility] Care Team (unrecognized sect ion and content) Care Team Personnel Name: Imani Laboy Clerk Michelle PT Position: P3 Scheduling - Foam Fabricator Advanced Member Role: Other Name: AARON PIERRE Position: P4 Advanced Practice Nurse Med Service: Active Provider Member Role: Primary Care Physician Address: Address: [address] [place] [phone] Care Team Related Persons Name: YESI ANDERS Name: PAVAN CHU Care Team Personnel Name: Imani Laboy Clerk Michelle PT Position: P3 Scheduling - Foam Fabricator Advanced Member Role: Other Name: TOMASZ LYNNESTAPLE FIBER WASHER Position: Hospitalist Advanced Practice Nurse Member Role: Primary Care Physician Address: Address: [address] [place] [address]- Care Team Related Persons Name: YESI ANDERS Name: PAVAN CHU Care Team Personnel Name: Imani Laboy Clerk Michelle PT Position: P3 Scheduling - Foam Fabricator Advanced Member Role: Other Name: TOMASZ LYNNE APRN-STAPLE FIBER WASHER Position: Hospitalist Advanced Practice Nurse Member Role: Primary Care Physician Address: Address: [address] [place] [id number] Name: Adreinne Webster RN Position: AO RN Member Role: ED RN Name: ALYSSA Desouza Position: AO RN Member Role: ED RN Name: MD XENIA, KIMBERLY SIMTH Position: ED Physician Member Role: ED Physician Address: Address: [address] [place] [phone]- Care Team Related Persons Name: YESI ANDERS Name: PAVAN CHU Care Team Personnel Name: Narda, [employer] Michelle PT Position: P3 Scheduling - Foam Fabricator Advanced Member Role: Other Name: TOMASZ LYNNE BACK PANEL PADDER-STAPLE FIBER WASHER Position: Hospitalist Advanced Practice Nurse Member Role: Primary Care Physician Address: Address: [address] [place] [address] Care Team Related Persons Name: YESI ANDERS Name: PAVAN CHU Care Team Personnel Name: Narda, [employer] Michelle PT Position: P3 Scheduling - Foam Fabricator Advanced Member Role: Other Name: DARIO BOBO DO Position: P4 Physician - Primary Care Member Role: Primary Care Physician Address: Address: [address] [place] [address] Care Team Related Persons Name: YESI ANDERS Name: PAVAN CHU Care Team Personnel Name: Narda, [employer] Michelle PT Position: P3 Scheduling - Foam Fabricator Advanced Member Role: Other Name: DARIO BOBO DO Position: P4 Physician - Primary Care Member Role: Primary Care Physician Address: Address: [address] [place] [address] Care Team Related Persons Name: YESI ANDERS Name: APVAN CHU Patient Care team informatio n (unrecognized section and content) Pipeline Dispatcher Relationship Specialty Start Date End Date Physicians, [address] [phone] PCP - General 05/07/22 Pipeline Dispatcher Relationship Specialty Start Date End Date Physicians, [address] [phone] PCP - General 05/07/22 Pipeline Dispatcher Relationship Specialty Start Date End Date Physicians, [place] [address] [facility] [place] [address] PCP - General 05/07/22 Pipeline Dispatcher Relationship Specialty Start Date End Date Physicians, [place] [address] [place] [facility] [place] [address] PCP - General 05/07/22 Pipeline Dispatcher Relationship Specialty Start Date End Date Physicians, [address] [place] [address] PCP - General 05/07/22 03/29/23 Vilma Yousif MD [address] [place] [address] PCP - General Family Medicine 03/30/23 Pipeline Dispatcher Relationship Specialty Start Date End Date Vilma Yousif MD [address] [place] [address] PCP - General Family Medicine 03/30/23 Pipeline Dispatcher Relationship Specialty Start Date End Date Physicians, Ellen [address] [place] [phone] PCP - General 05/07/22 03/29/23 Vilma Yousif MD [address] [place] [address] PCP - General Family Medicine 03/30/23 Pipeline Dispatcher Relationship Specialty Start Date End Date Vilma Yousif MD [address] [place] [address] PCP - General Family Medicine 03/30/23 Reason for Visit (unrecogniz ed section and content) Reason Onset Date Comments Reschedule 11/13/2022 Reason Comments Annual Exam Reason Onset Date Comments Hypertension 02/17/2023 Reason Onset Date Comments Palpitations 03/16/2023 Reason Comments Ankle Pain Left Specialty Diagnoses / Procedures Referred By Contac t Referred To Contact Cardiology Diagnoses Acute embolism and thrombosis of left tibial vein (HCC) Procedures Vascular US lower extremity venous duplex left SaraviaDelbert, DPM [address] [place] [address] Referral ID Status Reason Start Date Expiration Date V isits Requested Visits Authorized [id number] Pending Review 04/07/2023 04/06/2024 1 1 Scheduled Active and Recently Administ ered Medications (unrecognized section and content) FOR RECORDS PERTAINING TO PATIENTS WHO ARE OR HAVE BEEN ENROLLED IN A CHEMICAL DEPENDENCY/SUBSTANCEABUSE PROGRAM, SOME INFORMATION MAY BE OMITTED. This clinical summary was aggregated from multiple sources. Caution should be exercised in using it in the provision of clinical care. This summary normalizes information from multiple sources, and as a consequence, information in this document may materially change the coding, format and clinical context of patient data. In addition, data may be omitted in some cases. CLINICAL DECISIONS SHOULD BE BASED ON THE PRIMARY CLINICAL RECORDS. [email or web address]-[email or web address]. provides no warranty or guarantee of the accuracy or completeness of information in this document.
[2023-05-08 12:14] VITALS: BP 141/79; PULSE 95; O2SAT 94
[2023-05-08 12:25] VITALS: BP 135/79; PULSE 94; O2SAT 93
[2023-05-08 12:34] VITALS: BP 130/72; PULSE 95; O2SAT 90
== END | disposition home or self-care (01) ==
LOC: MRI 08:10
PROVIDERS: Referring Provider Orthopaedic Surgery; Visit Provider Orthopaedic Surgery
DX: S80.12XA Contusion of left lower leg, initial encounter (principal)
CPT/HCPCS: 73721

== ENCOUNTER → 2024-03-14 | Outpatient (CLI) | payer MEDICARE, OTHER, SELFPAY ==
[2024-03-14 11:02] VITALS: BP 171/96; PULSE 100; O2SAT 93
[2024-03-14 11:12] VITALS: BP 161/85; PULSE 100; O2SAT 94
[2024-03-14 11:22] VITALS: BP 161/97; PULSE 100; O2SAT 96
[2024-03-14 11:30] VITALS: BP 170/101; PULSE 100; O2SAT 96
== END | disposition home or self-care (01) ==
PROVIDERS: PCP Nurse Practitioner Adult Health; Visit Provider Orthopaedic Surgery
DX: M76.62 Achilles tendinitis, left leg (principal); M77.32 Calcaneal spur, left foot; S86.012A Strain of left Achilles tendon, initial encounter
CPT/HCPCS: 73721